=== PATIENT | female | born 1940 | race Caucasian/White ===

== ENCOUNTER 2017-02-08 16:54 | Inpatient (IN) | payer MEDICARE ==
[2017-02-08] MEDS ORDERED: IPRATROPIUM/ALBUTEROL (0.5MG/3MG) NEB INH ONE (17:12)
[2017-02-08] MEDS ORDERED: METHYLPREDNISOLONE PF 125MG/VIAL IVP SCH ×2 (17:15→18:45)
[2017-02-08] MEDS ORDERED: ACETAMINOPHEN 500 MG TABLET PO ONE (17:16)
--- NOTE | 2017-02-08 17:18 | Emergency Department Record ---
History of Present Illness - General Chief Complaint: Chest Pain Stated Complaint: CHEST PAIN, Time Seen by Provider: 02/08/17 17:10 Source: Patient, Family Mode of Arrival: Wheelchair Limitations: No limitations - History of Present Illness Initial Comments: 76 yo female presents with congestion and a cough for nearly one month. She saw Dr James her PCP at the beginning of January. He treated her with Levaquin. She initially felt better. Over the last week her cough has worsened. The cough is productive with thick green/zamora sputum. She is a smoker that quick about 3months ago. She denies knowledge of having COPD. She has had pneumonia in the past. No NVD. Over many years she has had chest pain from time to time. Currently the pain occurs with cough. MD Complaint: Chest pain, Other (Cough, fever, productive sputum, pain with cough) Onset/Timin -: Days(s) Onset: During rest Pain Location: Substernal Pain Radiation: None Quality: Heaviness Consistency: Constant Improves With: Nothing Worsens With: Nothing Anginal Symptoms: Dyspnea Treatments Prior to Arrival: Aspirin - Related Data Home Medications Medication Instructions Recorded Confirmed Last Taken Carvedilol [Carvedilol] 12.5 mg PO BID 04/26/15 02/08/17 04/26/15 Aspirin [Adult Low Dose Aspirin EC] 81 mg PO DAILY 08/03/15 02/08/17 Unknown Lorazepam [Lorazepam] 0.5 mg PO ASDIR PRN 02/08/17 02/08/17 Unknown Zolpidem Tartrate [Ambien] 10 mg PO QHS PRN 02/08/17 02/08/17 Unknown Allergies Allergy/AdvReac Type Severity Reaction Status Date / Time Penicillins Allergy HIVES Verified 04/26/15 14:42 Travel Screening - Travel/Exposure Within Last 30 Days Have you traveled within the last 30 days?: No Review of Systems Constitutional: Reports: Chills, Fever, Malaise, Weakness Eyes: Denies: Eye pain, Vision change ENT: Reports: Congestion. Denies: Ear pain Respiratory: Reports: Cough, Dyspnea, Wheezes Cardiovascular: Reports: Chest pain (with coughing), Palpitations. Denies: Syncope Endocrine: Reports: Fatigue. Denies: Polydipsia, Polyuria Gastrointestinal: Denies: Abdominal pain, Diarrhea, Nausea, Vomiting Genitourinary: Denies: Dyspareunia, Dysuria, Urgency Musculoskeletal: Denies: Arthralgia, Back pain, Myalgia, Neck pain Skin: Denies: Bruising, Change in color, Rash Neurological: Denies: Headache, Weakness Psychiatric: Denies: Anxiety Hematological/Lymphatic: Denies: Blood Clots, Easy bleeding, Easy bruising, Swollen glands Past Medical History - SOCIAL HISTORY Smoking Status: Former smoker Alcohol Use: None Drug Use: None - RESPIRATORY Hx Respiratory Disorders: No - CARDIOVASCULAR Hx Cardio Disorders: Yes Comment:: Heart murmur - NEURO Hx Neuro Disorders: No - GI Hx GI Disorders: No - Hx Genitourinary Disorders: No - ENDOCRINE Hx Endocrine Disorders: No - MUSCULOSKELETAL Hx Musculoskeletal Disorders: Yes - PSYCH Hx Psych Problems: No - HEMATOLOGY/ONCOLOGY Hx Hematology/Oncology Disorders: No Family Medical History Any Significant Family History?: Yes Hx Cancer: Father Physical Exam - General General Appearance: Alert, Oriented x3, Cooperative, No acute distress Limitations: No limitations - Head Head exam: Normal inspection - Eye Eye exam: Normal appearance, PERRL. negative: Conjunctival injection, Periorbital swelling - ENT ENT exam: Normal exam, Mucous membranes moist, Normal orophraynx Ear exam: Normal external inspection Nasal Exam: Discharge. negative: Normal inspection, Dried blood Mouth exam: Normal external inspection, Tongue normal Teeth exam: Normal inspection. negative: Dental caries Throat exam: Normal inspection. negative: Tonsillar erythema, Tonsillomegaly, Tonsillar exudate, R peritonsillar mass, L peritonsillar mass - Neck Neck exam: Normal inspection, Full ROM. negative: Lymphadenopathy, Tenderness - Respiratory Respiratory exam: Decreased breath sounds, Prolonged expiratory, Rhonchi, Wheezes. negative: Normal lung sounds bilaterally, Accessory muscle use, Rales , Respiratory distress - Cardiovascular Cardiovascular Exam: Regular rate, Normal rhythm, Normal heart sounds - GI/Abdominal GI/Abdominal exam: Soft. negative: Normal bowel sounds - Rectal Rectal exam: Deferred - exam: Deferred - Extremities Extremities exam: Normal inspection, Full ROM, Normal capillary refill. negative: Tenderness - Back Back exam: Reports: Normal inspection, Full ROM. Denies: CVA tenderness (R), CVA tenderness (L), Muscle spasm, Paraspinal tenderness, Rash noted, Tenderness , Vertebral tenderness - Neurological Neurological exam: Alert, Normal gait, Oriented X3 - Psychiatric Psychiatric exam: Normal affect, Normal mood - Skin Skin exam: Dry, Intact, Normal color, Warm Course Vital Signs 02/08/17 16:58 Temperature 100.8 F H Pulse Rate 65 Respiratory 20 Rate Blood Pressure 200/75 Pulse Ox 97 - Reevaluation(s) Reevaluation #1: The patient was seen and examined She has a 100.8 fever with thick grayish sputum No hypxia EKG 16:55 NSR, Rate is 64, intervals normal, axis normal, possiblwe LVH, no acute St changes or ischemic changes. 02/08/17 17:17 Reevaluation #2: The patient was seen after the breathing treatment She has improved air movement CXR was read and chronic interstitial changes with superimposed infiltrate in the MARK consistent with pneumonia. 02/08/17 18:04 Reevaluation #3: CBC reviewed WBC is 17 No acute changes of the CMP Troponin is negative 02/08/17 18:10 Reevaluation #4: influenza is negative 02/08/17 18:21 Reevaluation #5: The patient saturations vary form upper 80's to 90's She did improved with the Duoneb but still has some dyspnea She will be made OBS for respiratory treatment, IV steroids and antibiotics No [facility] She accepts the patient. 02/08/17 18:34 Medical Decision Making - Lab Data Result diagrams: 02/08/17 17:20 02/08/17 17:20 Disposition Disposition: Admit Clinical Impression: COPD exacerbation Pneumonia Qualifiers: Pneumonia type: due to unspecified organism Laterality: left Lung location: upper lobe of lung Qualified Code(s): J18.1 - Lobar pneumonia, unspecified organism Decision to Admit: Admit from ER Decision to Admit Date: 02/08/17 Decision to Admit Time: 18:35 Condition: (2) Stable Forms: Patient Portal Access Time of Disposition: 18:35
[2017-02-08 17:40] LABS: HEMATOCRIT 44.3 % (35.0-47.0); HEMOGLOBIN 14.6 gm/dl (11.6-16.0); MEAN CORPUSCULAR HEMOGLOBIN 29.7 pg (27-33); MEAN PLATELET VOLUME 10.4 fl (7.4-10.4); PLATELET COUNT 350 K/uL (130-400); RED BLOOD COUNT 4.92 M/uL (3.80-5.40); RED CELL DISTRIBUTION WIDTH 14.2 % (11.5-14.5); WHITE BLOOD COUNT W/O DIFF 17.4 K/uL (4.2-12.2)
[2017-02-08 17:53] LABS: ANION GAP 8.3 (7-16); BLOOD UREA NITROGEN 15 mg/dL (7-17); CARBON DIOXIDE 25.7 mmol/L (22-30); CREATININE 0.5 mg/dL (0.52-1.04); EST GLOMERULAR FILTRATION RATE > 60 ml/min; GLUCOSE,RANDOM 98 mg/dL (70-110)
[2017-02-08 18:07] LABS: TROPONIN I < 0.012 ng/mL (0.00-0.034)
[2017-02-08] MEDS ORDERED: CEFTRIAXONE SODIUM 1 GM in 0.9 % SODIUM CHLORIDE 100ML 100 ML IVPB ONE (18:10)
[2017-02-08] MEDS ORDERED: AZITHROMYCIN 500 MG TABLET PO ONE (18:10)
[2017-02-08 18:14] LABS: INFLUENZA A NEGATIVE (NEGATIVE); INFLUENZA B NEGATIVE (NEGATIVE)
[2017-02-08] MEDS ORDERED: LORAZEPAM 0.5 MG TABLET PO PRN (18:35)
[2017-02-08] MEDS ORDERED: ACETAMINOPHEN 500 MG TABLET PO PRN ×2 (18:36→20:59)
[2017-02-08] MEDS ORDERED: ALBUTEROL SULFATE (0.083%) 2.5 MG/3 ML NEB INH PRN ×2 (18:36→20:59)
[2017-02-08] MEDS ORDERED: 0.9 % SODIUM CHLORIDE 1000ML 1,000 ML IV PRN (18:36)
[2017-02-08] MEDS ORDERED: CEFTRIAXONE SODIUM 1 GM in 0.9 % SODIUM CHLORIDE 100ML 100 ML IVPB SCH ×2 (18:45→21:00)
[2017-02-08] MEDS ORDERED: METHYLPREDNISOLONE SOD 40MG/VIAL IVP ONE (20:59)
[2017-02-08] MEDS ORDERED: IPRATROPIUM/ALBUTEROL (0.5MG/3MG) NEB INH SCH (22:00)
[2017-02-08] MEDS ORDERED: CARVEDILOL 12.5 MG PO SCH (22:00)
[2017-02-08] MEDS: IPRATROPIUM/ALBUTEROL (0.5MG/3MG) NEB INH SCH (22:10)
[2017-02-08] MEDS: 0.9 % SODIUM CHLORIDE 1000ML 1,000 ML IV PRN (23:22)
[2017-02-08] MEDS: LORAZEPAM 0.5 MG TABLET PO PRN (23:23)
[2017-02-08] MEDS: ASPIRIN 81 MG TABEC PO SCH (23:36)
[2017-02-08] MEDS: CARVEDILOL 12.5 MG TABLET PO SCH (23:37)
[2017-02-09] MEDS: IPRATROPIUM/ALBUTEROL (0.5MG/3MG) NEB INH SCH ×5 (01:52→19:34)
[2017-02-09 06:24] LABS: HEMATOCRIT 43.3 % (35.0-47.0); HEMOGLOBIN 14.2 gm/dl (11.6-16.0); MEAN CELL VOLUME 90.4 fl (81-97); MEAN CORPUSCULAR HEMOGLOBIN 29.6 pg (27-33); MEAN CORPUSCULAR HGB CONC 32.8 g/dl (32-36); MEAN PLATELET VOLUME 10.2 fl (7.4-10.4); PLATELET COUNT 316 K/uL (130-400); RED BLOOD COUNT 4.79 M/uL (3.80-5.40); RED CELL DISTRIBUTION WIDTH 14.2 % (11.5-14.5); WHITE BLOOD COUNT W/O DIFF 15.5 K/uL (4.2-12.2)
[2017-02-09 06:31] LABS: ALB/GLOB RATIO 1.1 (1.1-1.8); ALBUMIN 3.9 gm/dL (3.5-5.0); ALKALINE PHOSPHATASE 104 U/L (38-126); ALT/SGPT 17 U/L (9-52); ANION GAP 9.3 (7-16); AST/SGOT 20 U/L (14-36); BILIRUBIN,TOTAL 0.67 mg/dL (0.2-1.3); BLOOD UREA NITROGEN 17 mg/dL (7-17); CARBON DIOXIDE 23.7 mmol/L (22-30); CREATININE 0.5 mg/dL (0.52-1.04); EST GLOMERULAR FILTRATION RATE > 60 ml/min; GLUCOSE,RANDOM 156 mg/dL (70-110); TOTAL PROTEIN 7.5 gm/dL (6.3-8.2)
[2017-02-09 06:36] LABS: PLATELET ESTIMATE NORMAL (NORMAL)
--- NOTE | 2017-02-09 07:51 | RADIOLOGY REPORT ---
EXAM: CHEST, TWO VIEWS HISTORY: PATIENT HAS CHEST PAIN, COUGH, WEAKNESS, FATIGUE TIMES ONE WEEK. TECHNIQUE: Two views of the chest were provided along with the comparison study dated 11/26/13. FINDINGS: The cardiomediastinal silhouette is within normal limits for size and contour. The taj appear unremarkable. Diffuse interstitial prominence is identified similar to the prior examination suggesting pulmonary fibrosis. Clinical correlation is recommended. Bilateral apical pleural thickening is again noted and unchanged with respect to the prior examination. No pneumothorax is noted. There is an area of interstitial prominence involving the left anterior lower lobe. This finding may represent superimposed pneumonia on the pulmonary fibrosis. Follow-up PA and lateral views of the chest can be obtained for further evaluation. IMPRESSION: FINDINGS SUGGESTIVE OF CHRONIC INTERSTITIAL CHANGES SIMILAR TO THE PRIOR EXAMINATION WITH SUPERIMPOSED LEFT ANTERIOR LOWER LOBE INFILTRATE SUGGESTING SUPERIMPOSED PNEUMONIA. FOLLOW-UP PA AND LATERAL VIEWS OF THE CHEST CAN BE OBTAINED UNTIL RESOLUTION OF FINDINGS. JOB NUMBER: [id number] MTDD
[2017-02-09] MEDS: CARVEDILOL 12.5 MG TABLET PO SCH ×2 (09:49→22:25)
[2017-02-09] MEDS: ASPIRIN 81 MG TABEC PO SCH (09:51)
[2017-02-09] MEDS: ENOXAPARIN 40 MG/0.4 ML SYR SQ SCH (09:51)
[2017-02-09] MEDS: CEFTRIAXONE SODIUM 1 GM in 0.9 % SODIUM CHLORIDE 100ML 100 ML IVPB SCH ×2 (09:51→22:17)
[2017-02-09] MEDS: AZITHROMYCIN 250 MG TABLET PO SCH (09:51)
[2017-02-09] MEDS ORDERED: AZITHROMYCIN 500 MG TABLET PO SCH (10:00)
[2017-02-09] MEDS ORDERED: ENOXAPARIN 40 MG/0.4 ML SYR SC SCH (10:00)
[2017-02-09] MEDS ORDERED: ASPIRIN 81 MG TABEC PO SCH (10:00)
[2017-02-09] MEDS: METHYLPREDNISOLONE PF 125MG/VIAL IVP SCH (10:37)
[2017-02-09] MEDS: HYDROCODONE/APAP 5/325MG TABLET PO PRN ×2 (11:01→16:18)
--- NOTE | 2017-02-09 11:52 | History & Physical ---
History of Present Illness - Date of Service Date of Service for History & Physical: 02/09/17 - History of Present Illness Admitting Diagnosis: Pneumonia History of Present Illness: 76 yo female admitted for MARK PNA. PMHx of smoking (quit 3 mo's ago, 1ppd x 20 + years), history of PNA, insomnia, anxiety, and low back pain. Presented to our ED after one week of worsening cough, fever and chills. Patient received PO Levaquin in early January from her PCP for lower respiratory infection. Upon presentation to our ED, temperature of 100.8, HR 65, RR 20, blood pressure 200/75, pulse ox of 97 % on RA. WBC 17.4, hgb 14.6, hct 44.3, plt 350, relatively normal BMP, CE negative x 3. negative influenza. Blood cx pending. CXR: chronic interstitial changes with superimposed infiltrate in MARK consistent w/ PNA. EKG: NSR, rate of 64, intervals/axis normal, possible LVH, no acute ST or ischemic changes. While in the ER, patient's oxygen varied between the 80-90s though patient improved following Duo neb treatment. Patient started on PO Azithromycin, 1 gm of Rocephin Q12 hours, 60 mg of IV Solumedrol and 100 mls/hr of IVF's. Patient placed on Telemetry and admitted for further medical management. 02/09/17: Patient sitting up in bed comfortably. States she feels better than yesterday though continues to feel fatigued & weak. Dyspnea improving following breathing treatments. Diaphoresis has improved. afebrile. Tolerating PO intake. normal /GI function. +chest pressure with coughing, + dizziness w/ standing. No nvd, abd pain, change in bowel habits, blood in stool or sputum, unintentional weight loss, rash, or dysuria. Denies h/o MS, DVT, or CVA. States she's been told she has a heart murmur due to h/o strep, which is why she's on Carvedilol. Has never been told she has COPD. No pulmonary or cardiac physicians. No recent travel or sick contacts. PCP: Steve Che Travel Screening - Travel/Exposure Within Last 30 Days Have you traveled within the last 30 days?: No - Travel/Exposure Within Last Year Have you traveled outside the [place] in the last year?: No - Additonal Travel Details Have you been exposed to anyone with a communicable illness?: No - Travel Symptoms Symptom Screening: None Review of Systems Constitutional: Reports: Chills, Fever, Malaise, Weakness Eyes: Denies: Eye pain, Vision change ENT: Reports: Congestion. Denies: Ear pain Respiratory: Reports: Cough, Dyspnea, Wheezes Cardiovascular: Reports: Chest pain (with coughing). Denies: Palpitations, Syncope Endocrine: Reports: Fatigue. Denies: Polydipsia, Polyuria Gastrointestinal: Denies: Abdominal pain, Diarrhea, Nausea, Vomiting Genitourinary: Denies: Dyspareunia, Dysuria, Urgency Musculoskeletal: Denies: Arthralgia, Back pain, Myalgia, Neck pain Skin: Denies: Bruising, Change in color, Rash Neurological: Denies: Confusion, Headache, Weakness Psychiatric: Denies: Anxiety Hematological/Lymphatic: Denies: Blood Clots, Easy bleeding, Easy bruising, Swollen glands Past Medical History - SOCIAL HISTORY Smoking Status: Former smoker Alcohol Use: None Drug Use: None - RESPIRATORY Hx Respiratory Disorders: No - CARDIOVASCULAR Hx Cardio Disorders: Yes Comment:: Heart murmur, BNP of 1200 per Pt. - NEURO Hx Neuro Disorders: No - GI Hx GI Disorders: No - Hx Genitourinary Disorders: No - ENDOCRINE Hx Endocrine Disorders: No - MUSCULOSKELETAL Hx Musculoskeletal Disorders: Yes - PSYCH Hx Psych Problems: No - HEMATOLOGY/ONCOLOGY Hx Hematology/Oncology Disorders: No Family Medical History Any Significant Family History?: Yes Hx Cancer: Father H&P Meds/Allergies - Allergies Allergies: Allergies Allergy/AdvReac Type Severity Reaction Status Date / Time Penicillins Allergy HIVES Verified 04/26/15 14:42 - Home Medications Home Medications Medication Instructions Recorded Confirmed Last Taken Carvedilol [Carvedilol] 12.5 mg PO BID 04/26/15 02/08/17 04/26/15 Aspirin [Adult Low Dose Aspirin EC] 81 mg PO DAILY 08/03/15 02/08/17 Unknown Lorazepam [Lorazepam] 0.5 mg PO ASDIR PRN 02/08/17 02/08/17 Unknown Zolpidem Tartrate [Ambien] 10 mg PO QHS PRN 02/08/17 02/08/17 Unknown - Active Medications Active Medications: Current Medications Acetaminophen (Tylenol 500mg Tab) 1,000 mg PO Q6H PRN PRN Reason: Pain - Mild (1-4) Hydrocodone Bitart/Acetaminophen ([place] 5mg/325mg) 1 each PO Q4H PRN PRN Reason: Pain - Moderate (5-7) Last Admin: 02/09/17 11:01 Dose: 1 each Albuterol Sulfate () 2.5 mg INH RESP.Q2H PRN PRN Reason: DIFFICULTY IN BREATHING Albuterol/Ipratropium (Duoneb) 3 ml INH RESP.Q4H.[place] [facility] Last Admin: 02/09/17 10:24 Dose: 3 ml Aspirin (Ecotrin (Ec)) 81 mg PO DAILY [facility] Last Admin: 02/09/17 09:51 Dose: 81 mg Azithromycin (Zithromax) 250 mg PO DAILY [facility] Last Admin: 02/09/17 09:51 Dose: 250 mg Carvedilol (Coreg) 12.5 mg PO BID [facility] Last Admin: 02/09/17 09:49 Dose: Not Given Enoxaparin Sodium (Lovenox) 40 mg SQ DAILY [facility] Last Admin: 02/09/17 09:51 Dose: 40 mg Sodium Chloride () 1,000 mls @ 100 mls/hr IV .Q10H PRN PRN Reason: LARGE VOLUME IV Last Admin: 02/08/17 23:22 Dose: 100 mls/hr Ceftriaxone Sodium 1 gm/ (Sodium Chloride) 100 mls @ 100 mls/hr IVPB Q12H [facility] Stop: 02/13/17 21:01 Last Admin: 02/09/17 09:51 Dose: 100 mls/hr Lorazepam (Ativan) 0.5 mg PO TID PRN PRN Reason: ANXIETY Last Admin: 02/08/17 23:23 Dose: 0.5 mg Methylprednisolone Sodium Succinate (Solu-Medrol) 60 mg IVP DAILY [facility] Last Admin: 02/09/17 10:37 Dose: 60 mg Physical Exam - General General Appearance: Alert, Oriented x3, Cooperative, No acute distress Limitations: No limitations - Head Head exam: Normal inspection - Eye Eye exam: Normal appearance, PERRL. negative: Conjunctival injection, Periorbital swelling - ENT ENT exam: Normal exam, Mucous membranes moist, Normal orophraynx Ear exam: Normal external inspection Nasal Exam: Discharge. negative: Normal inspection, Dried blood Mouth exam: Normal external inspection, Tongue normal Teeth exam: Normal inspection. negative: Dental caries Throat exam: Normal inspection. negative: Tonsillar erythema, Tonsillomegaly, Tonsillar exudate, R peritonsillar mass, L peritonsillar mass - Neck Neck exam: Normal inspection, Full ROM. negative: Lymphadenopathy, Tenderness - Respiratory Respiratory exam: Decreased breath sounds, Prolonged expiratory, Rhonchi (left side), Wheezes. negative: Normal lung sounds bilaterally, Accessory muscle use , Chest wall tenderness, Rales, Respiratory distress - Cardiovascular Cardiovascular Exam: Regular rate, Normal rhythm, Normal heart sounds - GI/Abdominal GI/Abdominal exam: Soft. negative: Normal bowel sounds - Rectal Rectal exam: Deferred - exam: Deferred - Extremities Extremities exam: Normal inspection, Full ROM, Normal capillary refill. negative: Tenderness - Back Back exam: Reports: Normal inspection, Full ROM. Denies: CVA tenderness (R), CVA tenderness (L), Muscle spasm, Paraspinal tenderness, Rash noted, Tenderness , Vertebral tenderness - Neurological Neurological exam: Alert, Normal gait, Oriented X3 - Psychiatric Psychiatric exam: Normal affect, Normal mood - Skin Skin exam: Dry, Intact, Normal color, Warm Results - Labs Result Diagrams: 02/09/17 06:10 02/09/17 06:10 VTE H&P Assessment - Risk for VTE Risk for VTE: Yes Risk Level: Moderate (age, decreased mobility) Risk Assessment Date: 02/09/17 Risk Assessment Time: 11:00 VTE Orders Placed or Will Be Placed: Yes Plan - Inpatient Certification Inpatient Certification: Admit to inpatient care: Based on my medical assessment, after consideration of patient's risk factors (age, co-morbidities and patient presenting symptoms and acuity), I expect that this patient will remain in the hospital greater than or equal to two midnights and that the services needed warrant inpatient care because: Patient Risk Factors: [pneumonia, chest discomfort, fever, decreased mobility due to weakness/fatigue, short of breath] Estimated length of stay: [2-3 nights] The patient may reasonably be expected to be discharged or transferred to a hospital within 96 hours after admission to [facility]. Services needed: [IV antibiotics, IV steroids, classroom monitor, observation by staff w/ ambulation, breathing treatments/respiratory services.] Post hospital care (if known): [home, self care] I certify that my determination is in accordance with my understanding of Medicare requirements for reasonable and necessary inpatient services. 02/09/17 12:09 - Detailed Diagnosis and Plan (1) Pneumonia Current Visit: Yes Status: Acute Qualifiers: Pneumonia type: due to unspecified organism Laterality: left Lung location: upper lobe of lung Qualified Code(s): J18.1 - Lobar pneumonia, unspecified organism Base Code: J18.9 - PNEUMONIA, UNSPECIFIED ORGANISM Comment: 76 yo f addmitted w/ MARK PNA. PMHx of smoking (quit 3 mo's ago) & h/o PNA. CXR: MARK infiltrate, interstitial changes. WBC 17.4->15.5. Afebrile now though temp of 100.8 prior to admission. Blood cx's pending. oxygen saturation 96% on RA. EKG: NSR, no acute changes. Cardiac enzymes negative x 3. - Continue PO Azithromycin, IV Rocephin 1 gm q 12 hours; Duo neb treatments Q 4 hours, albuterol Q 4-6 hours as needed, Solu medrol 60 mg daily. anti pyretics as needed for fever. - will obtain sputum culture. - VS's Q8 hours. classroom monitor. (2) DVT prophylaxis Current Visit: Yes Status: Acute Base Code: [id number] - Comment: 02/09/17: moderate risk noting decreased mobility and age. encouraged ambulation. lovenox 40 mg sq qd. (3) Full code status Current Visit: Yes Status: Acute Base Code: Z78.9 - OTHER SPECIFIED HEALTH STATUS Comment: 02/09/17: patient is full code
[2017-02-09] MEDS: LORAZEPAM 0.5 MG TABLET PO PRN (22:36)
[2017-02-10] MEDS: 0.9 % SODIUM CHLORIDE 1000ML 1,000 ML IV PRN (01:27)
[2017-02-10] MEDS: IPRATROPIUM/ALBUTEROL (0.5MG/3MG) NEB INH SCH ×2 (06:00→18:15)
[2017-02-10 06:32] LABS: HEMATOCRIT 38.1 % (35.0-47.0); HEMOGLOBIN 12.2 gm/dl (11.6-16.0); MEAN CELL VOLUME 91.6 fl (81-97); MEAN CORPUSCULAR HEMOGLOBIN 29.3 pg (27-33); MEAN PLATELET VOLUME 10.6 fl (7.4-10.4); PLATELET COUNT 291 K/uL (130-400); RED BLOOD COUNT 4.16 M/uL (3.80-5.40); RED CELL DISTRIBUTION WIDTH 14.5 % (11.5-14.5); WHITE BLOOD COUNT W/O DIFF 18.6 K/uL (4.2-12.2)
[2017-02-10 06:50] LABS: ANION GAP 6.7 (7-16); BLOOD UREA NITROGEN 18 mg/dL (7-17); CARBON DIOXIDE 24.3 mmol/L (22-30); CREATININE 0.5 mg/dL (0.52-1.04); EST GLOMERULAR FILTRATION RATE > 60 ml/min; GLUCOSE,RANDOM 81 mg/dL (70-110)
[2017-02-10] MEDS: CARVEDILOL 12.5 MG TABLET PO SCH ×2 (09:37→22:22)
[2017-02-10] MEDS: ASPIRIN 81 MG TABEC PO SCH (09:38)
[2017-02-10] MEDS: METHYLPREDNISOLONE PF 125MG/VIAL IVP SCH (09:38)
[2017-02-10] MEDS: ENOXAPARIN 40 MG/0.4 ML SYR SQ SCH (09:38)
[2017-02-10] MEDS: CEFTRIAXONE SODIUM 1 GM in 0.9 % SODIUM CHLORIDE 100ML 100 ML IVPB SCH ×2 (09:38→22:21)
[2017-02-10] MEDS: AZITHROMYCIN 250 MG TABLET PO SCH (09:39)
--- NOTE | 2017-02-10 09:45 | RADIOLOGY REPORT ---
EXAM: CHEST, TWO VIEWS HISTORY: FOLLOW-UP PNEUMONIA. TECHNIQUE: Two views of the chest were obtained. Comparison: Chest x-ray 02/08/17. Chest x-ray 11/26/13. FINDINGS: Biapical pleural thickening right greater than left consistent with fibrosis. Coarse reticular opacity throughout the lungs consistent with fibrosis. Air space disease overlying the anterior heart border on the lateral view has resolved. The cardiac silhouette is top normal in size. The diaphragm is flattened. Osteopenia. IMPRESSION: PULMONARY FIBROSIS. INTERVAL RESOLUTION OF THE ANTERIOR LUNG INFILTRATE ON THE LATERAL VIEW. NO DEFINITE ACUTE PROCESS. JOB NUMBER: [id number] MTDD
[2017-02-10] MEDS ORDERED: CEFTRIAXONE SODIUM 1 GM in 0.9 % SODIUM CHLORIDE 100ML 100 ML IVPB ONE (10:45)
--- NOTE | 2017-02-10 21:58 | Physician Progress Note ---
Subjective - Date Date of Physician Progress Note: 02/10/17 - Subjective Subjective Comment: Reports increase in fatigue and sluggishness over the last 24 hours with increased productive cough. Has had fatigue for the past several weeks prior to admission. Denies chest pain or palpitations. Denies GI/ dysfunction. Appetite poor but is forcing herself to eat. Objective - Vital Signs Vital Signs: Vital Signs - Last 24 Hrs Temp Pulse Pulse Resp BP Pulse Ox 02/10/17 19:45 97.6 F 50 L 22 132/68 97 02/10/17 18:18 65 20 96 02/10/17 18:00 97.6 F 60 20 139/74 96 02/10/17 09:30 98.1 F 48 L 18 154/64 98 02/10/17 08:42 54 L 18 02/10/17 05:30 97.7 F 54 L 18 147/73 97 - General General Appearance: Alert, Oriented x3, Cooperative, No acute distress Limitations: No limitations - Head Head exam: Normal inspection - Eye Eye exam: Normal appearance, PERRL. negative: Conjunctival injection, Periorbital swelling - ENT ENT exam: Normal exam, Mucous membranes moist, Normal orophraynx Ear exam: Normal external inspection Nasal Exam: Discharge. negative: Normal inspection, Dried blood Mouth exam: Normal external inspection, Tongue normal Teeth exam: Normal inspection. negative: Dental caries Throat exam: Normal inspection. negative: Tonsillar erythema, Tonsillomegaly, Tonsillar exudate, R peritonsillar mass, L peritonsillar mass - Neck Neck exam: Normal inspection, Full ROM. negative: Lymphadenopathy, Tenderness - Respiratory Respiratory exam: Decreased breath sounds, Prolonged expiratory, Rhonchi (left side), Wheezes. negative: Normal lung sounds bilaterally, Accessory muscle use , Chest wall tenderness, Rales, Respiratory distress - Cardiovascular Cardiovascular Exam: Regular rate (apical rate 56), Normal rhythm, Normal heart sounds - GI/Abdominal GI/Abdominal exam: Soft. negative: Normal bowel sounds - Rectal Rectal exam: Deferred - exam: Deferred - Extremities Extremities exam: Normal inspection, Full ROM, Normal capillary refill. negative: Tenderness - Back Back exam: Reports: Normal inspection, Full ROM. Denies: CVA tenderness (R), CVA tenderness (L), Muscle spasm, Paraspinal tenderness, Rash noted, Tenderness , Vertebral tenderness - Neurological Neurological exam: Alert, Normal gait, Oriented X3 - Psychiatric Psychiatric exam: Normal affect, Normal mood - Skin Skin exam: Dry, Intact, Normal color, Warm Assessment and Plan - Assessment and Plan (1) Pneumonia Current Visit: Yes Status: Acute Qualifiers: Pneumonia type: due to unspecified organism Laterality: left Lung location: upper lobe of lung Qualified Code(s): J18.1 - Lobar pneumonia, unspecified organism Base Code: J18.9 - PNEUMONIA, UNSPECIFIED ORGANISM Comment: 02/10/17- 76 yo f admitted w/ MARK PNA. PMHx of smoking (quit 3 mo's ago ) & h/o PNA. CXR: MARK infiltrate, interstitial changes. WBC 17.4->15.5->18.6 likely steroid induced elevation. Afebrile now though temp of 100.8 prior to admission. Blood cx's pending. oxygen saturation 96% on RA. EKG: NSR, no acute changes. Cardiac enzymes negative x 3. - Continue PO Azithromycin, IV Rocephin 1 gm q 12 hours; Duo neb treatments Q 4 hours, albuterol Q 4-6 hours as needed, Solu medrol 60 mg daily. anti pyretics as needed for fever. 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 (2) Bradycardia Current Visit: Yes Status: Acute Base Code: R00.1 - BRADYCARDIA, UNSPECIFIED Comment: 02/10/17- History of HTN with beta blockade. 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 Pulse 48 this am, patient feeling increasingly weak, sluggish. Coreg held this am - consult cardiology for bradycardia with need for hypertensive agent - initiate ACS rule out - VS q 4 hrs - EKG - troponin q 6hrs x 3 (3) HTN (hypertension) Current Visit: Yes Status: Acute Base Code: I10 - ESSENTIAL (PRIMARY) HYPERTENSION Comment: 02/10/17- history of HTN managed by PCP. New onset bradycardia with with need for hypertensive agent. ACS rule out in process. Cardiology consult ordered and pending (4) DVT prophylaxis Current Visit: Yes Status: Acute Base Code: [id number] - Comment: 02/10/17: moderate risk noting decreased mobility and age. encouraged ambulation. lovenox 40 mg sq qd. (5) Full code status Current Visit: Yes Status: Acute Base Code: Z78.9 - OTHER SPECIFIED HEALTH STATUS Comment: 02/10/17: patient is full code Results - Labs Result Diagrams: 02/10/17 06:10 02/10/17 06:10 Labs Last 24 Hours: Laboratory Results - last 24 hr 02/10/17 02/10/17 02/10/17 06:10 06:10 18:27 WBC 18.6 H RBC 4.16 Hgb 12.2 Hct 38.1 MCV 91.6 MCH 29.3 MCHC 32.0 RDW 14.5 Plt Count 291 MPV 10.6 H Neutrophils % 76.0 Band Neutrophils % 0.0 Lymphocytes % 18.0 Monocytes % 6.0 Eosinophils % 0.0 Basophils % Not Reportable Sodium 144 Potassium 3.4 L Chloride 113 H Carbon Dioxide 24.3 Anion Gap 6.7 L BUN 18 H Creatinine 0.5 L Estimated GFR > 60 Random Glucose 81 Calcium 8.5 Troponin I < 0.012 DVT/PE Assessment - Risk for VTE Risk for VTE: No Risk Level: Moderate (age, decreased mobility) Risk Assessment Date: 02/09/17 Risk Assessment Time: 11:00 VTE Orders Placed or Will Be Placed: Yes - Active Medicaitons Current Medications: Current Medications Acetaminophen (Tylenol 500mg Tab) 1,000 mg PO Q6H PRN PRN Reason: Pain - Mild (1-4) Hydrocodone Bitart/Acetaminophen ([place] 5mg/325mg) 1 each PO Q4H PRN PRN Reason: Pain - Moderate (5-7) Last Admin: 02/09/17 16:18 Dose: 1 each Albuterol Sulfate () 2.5 mg INH RESP.Q2H PRN PRN Reason: DIFFICULTY IN BREATHING Albuterol/Ipratropium (Duoneb) 3 ml INH RESP.Q12H [facility] Last Admin: 02/10/17 18:15 Dose: 3 ml Aspirin (Ecotrin (Ec)) 81 mg PO DAILY [facility] Last Admin: 02/10/17 09:38 Dose: 81 mg Azithromycin (Zithromax) 250 mg PO DAILY [facility] Last Admin: 02/10/17 09:39 Dose: 250 mg Carvedilol (Coreg) 12.5 mg PO BID [facility] Last Admin: 02/10/17 09:37 Dose: Not Given Enoxaparin Sodium (Lovenox) 40 mg SQ DAILY [facility] Last Admin: 02/10/17 09:38 Dose: 40 mg Sodium Chloride () 1,000 mls @ 100 mls/hr IV .Q10H PRN PRN Reason: LARGE VOLUME IV Last Admin: 02/10/17 01:27 Dose: 100 mls/hr Ceftriaxone Sodium 1 gm/ (Sodium Chloride) 100 mls @ 100 mls/hr IVPB Q12H [facility] Stop: 02/13/17 21:01 Last Admin: 02/10/17 09:38 Dose: 100 mls/hr Lorazepam (Ativan) 0.5 mg PO TID PRN PRN Reason: ANXIETY Last Admin: 02/09/17 22:36 Dose: 0.5 mg Methylprednisolone Sodium Succinate (Solu-Medrol) 60 mg IVP DAILY [facility] Last Admin: 02/10/17 09:38 Dose: 60 mg AMI Plan - Labs Result Diagrams: 02/10/17 06:10 02/10/17 06:10
[2017-02-10] MEDS: LORAZEPAM 0.5 MG TABLET PO PRN (22:20)
[2017-02-11] MEDS: 0.9 % SODIUM CHLORIDE 1000ML 1,000 ML IV PRN ×2 (03:47→21:14)
[2017-02-11] MEDS: IPRATROPIUM/ALBUTEROL (0.5MG/3MG) NEB INH SCH ×2 (07:34→19:45)
[2017-02-11] MEDS: CEFTRIAXONE SODIUM 1 GM in 0.9 % SODIUM CHLORIDE 100ML 100 ML IVPB SCH ×2 (09:26→21:10)
[2017-02-11] MEDS: ENOXAPARIN 40 MG/0.4 ML SYR SQ SCH (09:29)
[2017-02-11] MEDS: ASPIRIN 81 MG TABEC PO SCH (09:30)
[2017-02-11] MEDS: AZITHROMYCIN 250 MG TABLET PO SCH (09:30)
[2017-02-11] MEDS: METHYLPREDNISOLONE PF 125MG/VIAL IVP SCH (09:30)
[2017-02-11] MEDS: HYDROCODONE/APAP 5/325MG TABLET PO PRN (10:02)
--- NOTE | 2017-02-11 13:58 | Physician Progress Note ---
Subjective - Date Date of Physician Progress Note: 02/11/17 - Subjective Subjective Comment: Reports is feeling much better today, feeling less tired and weak. Denies chest pain, palpitations, syncope. Cough and appetite improved. Denies GI/ dysfunction Objective - Vital Signs Vital Signs: Vital Signs - Last 24 Hrs Temp Pulse Pulse Pulse Resp BP Pulse Ox 02/11/17 10:00 98.3 F 51 L 12 130/66 98 02/11/17 07:25 60 14 02/11/17 04:32 97.7 F 50 L 18 152/88 97 02/11/17 02:00 98.1 F 53 L 18 137/75 97 02/10/17 19:45 97.6 F 50 L 22 132/68 97 02/10/17 18:18 65 20 96 02/10/17 18:00 97.6 F 60 20 139/74 96 - General General Appearance: Alert, Oriented x3, Cooperative, No acute distress Limitations: No limitations - Head Head exam: Normal inspection - Eye Eye exam: Normal appearance, PERRL. negative: Conjunctival injection, Periorbital swelling - ENT ENT exam: Normal exam, Mucous membranes moist, Normal orophraynx Ear exam: Normal external inspection Nasal Exam: Discharge. negative: Normal inspection, Dried blood Mouth exam: Normal external inspection, Tongue normal Teeth exam: Normal inspection. negative: Dental caries Throat exam: Normal inspection. negative: Tonsillar erythema, Tonsillomegaly, Tonsillar exudate, R peritonsillar mass, L peritonsillar mass - Neck Neck exam: Normal inspection, Full ROM. negative: Lymphadenopathy, Tenderness - Respiratory Respiratory exam: Decreased breath sounds, Prolonged expiratory, Rhonchi (left side), Wheezes. negative: Normal lung sounds bilaterally, Accessory muscle use , Chest wall tenderness, Rales, Respiratory distress - Cardiovascular Cardiovascular Exam: Regular rate (apical rate 56), Normal rhythm, Normal heart sounds - GI/Abdominal GI/Abdominal exam: Soft. negative: Normal bowel sounds - Rectal Rectal exam: Deferred - exam: Deferred - Extremities Extremities exam: Normal inspection, Full ROM, Normal capillary refill. negative: Tenderness - Back Back exam: Reports: Normal inspection, Full ROM. Denies: CVA tenderness (R), CVA tenderness (L), Muscle spasm, Paraspinal tenderness, Rash noted, Tenderness , Vertebral tenderness - Neurological Neurological exam: Alert, Normal gait, Oriented X3 - Psychiatric Psychiatric exam: Normal affect, Normal mood - Skin Skin exam: Dry, Intact, Normal color, Warm Assessment and Plan - Assessment and Plan (1) Pneumonia Current Visit: Yes Status: Acute Qualifiers: Pneumonia type: due to unspecified organism Laterality: left Lung location: upper lobe of lung Qualified Code(s): J18.1 - Lobar pneumonia, unspecified organism Base Code: J18.9 - PNEUMONIA, UNSPECIFIED ORGANISM Comment: 02/11/17- 76 yo f admitted w/ MARK PNA. PMHx of smoking (quit 3 mo's ago ) & h/o PNA. CXR: MARK infiltrate, interstitial changes. WBC 17.4->15.5->18.6 likely steroid induced elevation. Afebrile now though temp of 100.8 prior to admission. Blood cx's pending with preliminary report of no growth to date. oxygen saturation 96% on RA. EKG: NSR, no acute changes. Cardiac enzymes negative x 3. Clinical symptom improvement today. - Continue PO Azithromycin, IV Rocephin 1 gm q 12 hours; Duo neb treatments Q 4 hours, albuterol Q 4-6 hours as needed, Solu medrol 60 mg daily. anti pyretics as needed for fever. - sputum culture pending - legionaire culture pending - VS's Q8 hours. - Clinical improvement today, will plan discharge home in am if Cardiology Ok echo to be done as outpatient - follow up PCP in 2 weeks (2) Bradycardia Current Visit: Yes Status: Acute Base Code: R00.1 - BRADYCARDIA, UNSPECIFIED Comment: 02/11/17- History of HTN with beta blockade. 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 Pulse 48 . patient had been feeling increasingly weak, sluggish with some improvement of symptoms today. Coreg on hold, pulse <60. No significant acute findings for ACS. - Cardiology consult today- new order for echo (will consult Dr Payne to see if this can be done as outpatient) - ACS work up- troponin X3 negative, 2 previous EKG- SR, left atrial enlargement , non-specific T wave abnormalities. (3) HTN (hypertension) Current Visit: Yes Status: Acute Base Code: I10 - ESSENTIAL (PRIMARY) HYPERTENSION Comment: 02/11/17- history of HTN managed by PCP. New onset bradycardia with with need for hypertensive agent. ACS rule out complete, /troponin x 3 negative. Cardiology consult complete with new order for echo. BP today 152/88 (4) DVT prophylaxis Current Visit: Yes Status: Acute Base Code: [id number] - Comment: 02/11/17: moderate risk noting decreased mobility and age. encouraged ambulation. lovenox 40 mg sq qd. (5) Full code status Current Visit: Yes Status: Acute Base Code: Z78.9 - OTHER SPECIFIED HEALTH STATUS Comment: 02/11/17: patient is full code Results - Labs Result Diagrams: 02/10/17 06:10 02/10/17 06:10 Labs Last 24 Hours: Laboratory Results - last 24 hr 02/10/17 02/10/17 02/11/17 13:35 18:27 00:15 Troponin I < 0.012 < 0.012 Influenza Virus (PCR) Not detected Specimen Comment Nasopharyngeal 02/11/17 08:20 Troponin I < 0.012 Influenza Virus (PCR) Specimen Comment DVT/PE Assessment - Risk for VTE Risk for VTE: No Risk Level: Moderate (age, decreased mobility) Risk Assessment Date: 02/09/17 Risk Assessment Time: 11:00 VTE Orders Placed or Will Be Placed: Yes - Active Medicaitons Current Medications: Current Medications Acetaminophen (Tylenol 500mg Tab) 1,000 mg PO Q6H PRN PRN Reason: Pain - Mild (1-4) Hydrocodone Bitart/Acetaminophen ([place] 5mg/325mg) 1 each PO Q4H PRN PRN Reason: Pain - Moderate (5-7) Last Admin: 02/11/17 10:02 Dose: 1 each Albuterol Sulfate () 2.5 mg INH RESP.Q2H PRN PRN Reason: DIFFICULTY IN BREATHING Albuterol/Ipratropium (Duoneb) 3 ml INH RESP.Q12H [facility] Last Admin: 02/11/17 07:34 Dose: 3 ml Aspirin (Ecotrin (Ec)) 81 mg PO DAILY [facility] Last Admin: 02/11/17 09:30 Dose: 81 mg Azithromycin (Zithromax) 250 mg PO DAILY [facility] Last Admin: 02/11/17 09:30 Dose: 250 mg Carvedilol (Coreg) 12.5 mg PO BID [facility] Last Admin: 02/10/17 22:22 Dose: Not Given Enoxaparin Sodium (Lovenox) 40 mg SQ DAILY [facility] Last Admin: 02/11/17 09:29 Dose: 40 mg Sodium Chloride () 1,000 mls @ 100 mls/hr IV .Q10H PRN PRN Reason: LARGE VOLUME IV Last Admin: 02/11/17 03:47 Dose: 100 mls/hr Ceftriaxone Sodium 1 gm/ (Sodium Chloride) 100 mls @ 100 mls/hr IVPB Q12H [facility] Stop: 02/13/17 21:01 Last Admin: 02/11/17 09:26 Dose: 100 mls/hr Lorazepam (Ativan) 0.5 mg PO TID PRN PRN Reason: ANXIETY Last Admin: 02/10/17 22:20 Dose: 0.5 mg Methylprednisolone Sodium Succinate (Solu-Medrol) 60 mg IVP DAILY [facility] Last Admin: 02/11/17 09:30 Dose: 60 mg AMI Plan - Labs Result Diagrams: 02/10/17 06:10 02/10/17 06:10
[2017-02-11] MEDS: CARVEDILOL 12.5 MG TABLET PO SCH ×2 (15:31→22:37)
[2017-02-11] MEDS: LORAZEPAM 0.5 MG TABLET PO PRN (21:10)
[2017-02-12] MEDS: IPRATROPIUM/ALBUTEROL (0.5MG/3MG) NEB INH SCH ×2 (06:17→17:06)
[2017-02-12] MEDS: AZITHROMYCIN 250 MG TABLET PO SCH (09:52)
[2017-02-12] MEDS: METHYLPREDNISOLONE PF 125MG/VIAL IVP SCH (09:52)
[2017-02-12] MEDS: CARVEDILOL 12.5 MG TABLET PO SCH ×2 (09:53→22:39)
[2017-02-12] MEDS: ENOXAPARIN 40 MG/0.4 ML SYR SQ SCH (09:53)
[2017-02-12] MEDS: CEFTRIAXONE SODIUM 1 GM in 0.9 % SODIUM CHLORIDE 100ML 100 ML IVPB SCH (09:54)
[2017-02-12] MEDS: ASPIRIN 81 MG TABEC PO SCH (09:54)
[2017-02-12] MEDS ORDERED: HYDROCHLOROTHIAZIDE 25 MG TABLET PO ONE (10:01)
--- NOTE | 2017-02-12 14:28 | Physician Progress Note ---
Subjective - Date Date of Physician Progress Note: 02/12/17 - Subjective Subjective Comment: Patient doing well today. Feels her strength has improved, has been ambulating in room and eng to prevent deconditioning and tolerating well. Denies CP, palpitations, ringing in ears, syncope. Denies GI/ dysfunction. Nursing reports continuing to hold Coreg for pulse<60. Awaiting echo as ordered by Dr Payne for persistent bradycardia with HTN. Objective - Vital Signs Vital Signs: Vital Signs - Last 24 Hrs Temp Pulse Resp BP Pulse Ox 02/12/17 08:34 98.1 F 51 L 23 174/74 95 02/11/17 22:04 98.6 F 97 H 18 151/75 97 02/11/17 18:00 98.5 F 53 L 12 134/58 97 - General General Appearance: Alert, Oriented x3, Cooperative, No acute distress Limitations: No limitations - Head Head exam: Normal inspection - Eye Eye exam: Normal appearance, PERRL. negative: Conjunctival injection, Periorbital swelling - ENT ENT exam: Normal exam, Mucous membranes moist, Normal orophraynx Ear exam: Normal external inspection Nasal Exam: Normal inspection. negative: Dried blood Mouth exam: Normal external inspection, Tongue normal Teeth exam: Normal inspection. negative: Dental caries Throat exam: Normal inspection. negative: Tonsillar erythema, Tonsillomegaly, Tonsillar exudate, R peritonsillar mass, L peritonsillar mass - Neck Neck exam: Normal inspection, Full ROM. negative: Lymphadenopathy, Tenderness - Respiratory Respiratory exam: Rhonchi (MARK, improved from yesterday). negative: Normal lung sounds bilaterally, Accessory muscle use, Chest wall tenderness, Decreased breath sounds, Prolonged expiratory, Rales, Respiratory distress, Wheezes - Cardiovascular Cardiovascular Exam: Regular rate (apical rate 56), Normal rhythm, Normal heart sounds - GI/Abdominal GI/Abdominal exam: Soft. negative: Normal bowel sounds - Rectal Rectal exam: Deferred - exam: Deferred - Extremities Extremities exam: Normal inspection, Full ROM, Normal capillary refill. negative: Tenderness - Back Back exam: Reports: Normal inspection, Full ROM. Denies: CVA tenderness (R), CVA tenderness (L), Muscle spasm, Paraspinal tenderness, Rash noted, Tenderness , Vertebral tenderness - Neurological Neurological exam: Alert, Normal gait, Oriented X3 - Psychiatric Psychiatric exam: Normal affect, Normal mood - Skin Skin exam: Dry, Intact, Normal color, Warm Assessment and Plan - Assessment and Plan (1) Pneumonia Current Visit: Yes Status: Acute Qualifiers: Pneumonia type: due to unspecified organism Laterality: left Lung location: upper lobe of lung Qualified Code(s): J18.1 - Lobar pneumonia, unspecified organism Base Code: J18.9 - PNEUMONIA, UNSPECIFIED ORGANISM Comment: 02/12/17- 76 yo f admitted w/ MARK PNA. PMHx of smoking (quit 3 mo's ago ) & h/o PNA. CXR: MARK infiltrate, interstitial changes. WBC 17.4->15.5->18.6 likely steroid induced elevation. Afebrile now though temp of 100.8 prior to admission. Blood cx's pending with preliminary report of no growth to date. oxygen saturation 96% on RA. EKG: NSR, HR 50-60, no acute changes. Cardiac enzymes negative x 3. Clinical symptom improvement today. - Continue PO Azithromycin for total 5 days - DC Rocephin after today's dose as afebrile, + clinical improvement - Continue Duo neb treatments Q 12 hours, albuterol Q 2 hours as needed, Solu medrol 60 mg daily. anti pyretics as needed for fever. - sputum culture pending - legionaire culture pending - VS's Q8 hours. - Clinical improvement, will plan discharge home Thursday after echocardiogram complete and no further cardiac concerns - follow up PCP in 2 weeks (2) Bradycardia Current Visit: Yes Status: Acute Base Code: R00.1 - BRADYCARDIA, UNSPECIFIED Comment: 02/12/17- History of HTN with beta blockade. 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 Pulse 48 . patient had been feeling increasingly weak, sluggish with some improvement of symptoms today. Coreg on hold, pulse <60. - ACS work up 02/10- troponin X3 negative, 2 previous EKG- SR, left atrial enlargement, non-specific T wave abnormalities. Cardiology consult 02/11- new order for echo, Dr Payne prefers patient remain inpatient for monitoring of persistent bradycardia until echo is completed 02/13. (3) HTN (hypertension) Current Visit: Yes Status: Acute Base Code: I10 - ESSENTIAL (PRIMARY) HYPERTENSION Comment: 02/12/17- history of HTN managed by PCP. New onset bradycardia with with need for hypertensive agent. ACS rule out complete, /troponin x 3 negative. Cardiology consult complete with new order for echo. BP today 175/84 - DC IVF today - Initiate hydrochlorothiazine 25mg PO QD (4) DVT prophylaxis Current Visit: Yes Status: Acute Base Code: [id number] - Comment: 02/12/17: moderate risk noting decreased mobility and age. encouraged ambulation. lovenox 40 mg sq qd during this hospitalization (5) Full code status Current Visit: Yes Status: Acute Base Code: Z78.9 - OTHER SPECIFIED HEALTH STATUS Comment: 02/12/17: patient is full code during this hospitalization Results - Labs Result Diagrams: 02/10/17 06:10 02/10/17 06:10 DVT/PE Assessment - Risk for VTE Risk for VTE: No Risk Level: Moderate (age, decreased mobility) Risk Assessment Date: 02/09/17 Risk Assessment Time: 11:00 VTE Orders Placed or Will Be Placed: Yes - Active Medicaitons Current Medications: Current Medications Acetaminophen (Tylenol 500mg Tab) 1,000 mg PO Q6H PRN PRN Reason: Pain - Mild (1-4) Hydrocodone Bitart/Acetaminophen ([place] 5mg/325mg) 1 each PO Q4H PRN PRN Reason: Pain - Moderate (5-7) Last Admin: 02/11/17 10:02 Dose: 1 each Albuterol Sulfate () 2.5 mg INH RESP.Q2H PRN PRN Reason: DIFFICULTY IN BREATHING Albuterol/Ipratropium (Duoneb) 3 ml INH RESP.Q12H [facility] Last Admin: 02/12/17 06:17 Dose: 3 ml Aspirin (Ecotrin (Ec)) 81 mg PO DAILY [facility] Last Admin: 02/12/17 09:54 Dose: 81 mg Azithromycin (Zithromax) 250 mg PO DAILY [facility] Last Admin: 02/12/17 09:52 Dose: 250 mg Carvedilol (Coreg) 12.5 mg PO BID [facility] Last Admin: 02/12/17 09:53 Dose: Not Given Enoxaparin Sodium (Lovenox) 40 mg SQ DAILY [facility] Last Admin: 02/12/17 09:53 Dose: 40 mg Hydrochlorothiazide (Hctz 25mg) 25 mg PO DAILY [facility] Ceftriaxone Sodium 1 gm/ (Sodium Chloride) 100 mls @ 100 mls/hr IVPB Q12H [facility] Stop: 02/13/17 21:01 Last Admin: 02/12/17 09:54 Dose: 100 mls/hr Lorazepam (Ativan) 0.5 mg PO TID PRN PRN Reason: ANXIETY Last Admin: 02/11/17 21:10 Dose: 0.5 mg Methylprednisolone Sodium Succinate (Solu-Medrol) 60 mg IVP DAILY [facility] Last Admin: 02/12/17 09:52 Dose: 60 mg AMI Plan - Labs Result Diagrams: 02/10/17 06:10 02/10/17 06:10
--- NOTE | 2017-02-12 15:31 | Medical Records Consult ---
DATE OF DICTATION: 02/11/17 DATE OF CONSULTATION: 02/11/17 INDICATION: BRADYCARDIA. HYPERTENSION. HISTORY: 76-year-old female presents to the E.D. complaining of congestion and cough for one month. Dr. Aldrich, her primary care physician, treated her with Levaquin, felt better for a little bit, and then over the last week her cough had worsened. The cough is productive, thick, zamora sputum. She has fevers occasionally. She quit smoking three months ago. Denies being told she ever had COPD. Apparently in the E.D. or on the Floor, her heart rates have been in the low 40s on occasion. From telemetry strips, it looks like it is mid to high 40s at the lowest. Some short bursts of SVT. She also complains of fatigue since being placed on Carvedilol for her blood pressure about two years ago. About a year ago, the dose was reduced. She felt a little better but still complains of fatigue. She is fairly sure the Carvedilol was started due to blood pressure but again she denies having any prolonged history of blood pressure issues. PAST MEDICAL HISTORY: Hypertension. Anxiety. Tobacco history. Intermittent chest pain on and off for years. ALLERGIES: PENICILLIN; HIVES. CURRENT MEDICATIONS: Carvedilol 12.5 mg p.o. b.i.d. Aspirin 81 mg daily Lorazepam 0.5 mg as directed Ambien 10 mg as directed FAMILY HISTORY: Noncontributory. SOCIAL HISTORY: Former tobacco user. No alcohol. No illicit. REVIEW OF SYSTEMS: GENERAL: Positive for fevers, chills since having upper respiratory tract infection. HEENT: No acute hearing or vision changes. CARDIOVASCULAR: Fatigue. No chest pain recently. Positive for productive cough. Shortness of breath since having her upper respiratory tract infection. PULMONARY: Positive for productive cough. GI: No nausea or vomiting. No tarry or bloody stools. : No dysuria or hematuria. ENDOCRINE: Denies diabetes history. HEME: No unexplained bruising or bleeding. NEUROMUSCULAR: Denies any stroke or seizure history. LABORATORIES: White blood cells 15.5, hemoglobin 14.2, hematocrit 43.3, platelets 316, glucose 156, BUN 17, creatinine 0.5, sodium 142, potassium 3.7, troponins within normal limits. RADIOLOGY: Chest x-ray shows chronic interstitial changes similar to prior exam. Left anterior lobe infiltrate suggesting superimposed pneumonia. EKG: Shows sinus rhythm. Questionable LVH. PHYSICAL EXAM: GENERAL: Alert and in no apparent distress. HEENT: Normocephalic/atraumatic. NECK: Supple. No JVD. No carotid bruits. CARDIOVASCULAR: Regular rhythm. Diminished heart sounds. PULMONARY: Coarse breath sounds upper lung madrigal. Decreased breath sounds left lower posterior lung madrigal. No accessory muscle use. ABDOMEN: Soft. Positive bowel sounds. EXTREMITIES: No edema. Radial and pedal pulses are grossly intact. NEUROMUSCULAR: Speech is clear. ASSESSMENT/PLAN: BRADYCARDIA: Most likely secondary to beta-blockade. She has been on this for a couple of years. About a year ago, the dose was reduced due to fatigue. If the beta-alexei has been used for blood pressure only, beta- blockers are really not the best initial blood pressure management regimen. She denies ever having an CA, which would be an indication for beta-alexei use so I feel her beta-alexei could be weaned off. I would eventually take her down to a half dose for a week and then go down to 3.25 mg b.i.d. twice a day and then discontinue. Her only allergies listed is Penicillin. An JEEVAN inhibitor and ARB would be a good choice to try for other blood pressure management as it will not effect her heart rate. We just might recommend the usual renal monitoring if an JEEVAN or an ARB is used. Would recommend she stay inpatient, increase her activity, continue to monitor on telemetry. Unfortunately, echocardiography is not out until Thursday so I would recommend she stay for her inpatient echocardiogram to make sure that her EF is normal. If her echo is unremarkable and there is significant bradycardia episodes or other arrhythmias , she could follow-up in our office in the outpatient clinic. If there are still no arrhythmias identified by the time she is discharged, I would recommend , before she goes home, to set her up with a 30-day event recorder so we can continue to monitor her for any significant arrhythmias as an outpatient. Antwon Payne D.O. Date & Time JOB NUMBER: [id number] [facility]
[2017-02-12] MEDS ORDERED: DILTIAZEM 25MG/5ML VIAL IV ONE (18:40)
[2017-02-12] MEDS ORDERED: DILTIAZEM HCL 125 MG in 0.9 % SODIUM CHLORIDE 100ML 100 ML IV SCH (18:45)
[2017-02-12] MEDS ORDERED: HEPARIN SODIUM 1000 UNIT/1 ML 10ML VIAL IVP ONE (19:15)
[2017-02-12] MEDS ORDERED: HEPARIN SODIUM/D5W 25,000 UNITS in DEXTROSE 5 % IN WATER 1 BAG IV SCH ×2 (19:19)
[2017-02-12 20:07] LABS: INR 0.96; PROTHROMBIN TIME (PATIENT) 10.9 SECONDS (9.5-12.1)
[2017-02-12] MEDS: LORAZEPAM 0.5 MG TABLET PO PRN (22:41)
[2017-02-13] MEDS ORDERED: ALPRAZOLAM 0.25 MG TABLET PO PRN (00:09)
[2017-02-13] MEDS ORDERED: HEPARIN SODIUM 1000 UNIT/1 ML 10ML VIAL IVP ONE ×2 (02:50→08:57)
[2017-02-13] MEDS: IPRATROPIUM/ALBUTEROL (0.5MG/3MG) NEB INH SCH (06:25)
[2017-02-13] MEDS: LORAZEPAM 0.5 MG TABLET PO PRN (06:25)
[2017-02-13 07:50] LABS: HEMATOCRIT 43.4 % (35.0-47.0); HEMOGLOBIN 14.2 gm/dl (11.6-16.0); MEAN CELL VOLUME 90.6 fl (81-97); MEAN CORPUSCULAR HEMOGLOBIN 29.6 pg (27-33); MEAN CORPUSCULAR HGB CONC 32.7 g/dl (32-36); MEAN PLATELET VOLUME 10.5 fl (7.4-10.4); PLATELET COUNT 334 K/uL (130-400); RED BLOOD COUNT 4.79 M/uL (3.80-5.40); RED CELL DISTRIBUTION WIDTH 14.3 % (11.5-14.5); WHITE BLOOD COUNT W/O DIFF 16.6 K/uL (4.2-12.2)
[2017-02-13 08:00] LABS: ALBUMIN 3.4 gm/dL (3.5-5.0); ALKALINE PHOSPHATASE 95 U/L (38-126); ALT/SGPT 45 U/L (9-52); ANION GAP 7.2 (7-16); AST/SGOT 44 U/L (14-36); BLOOD UREA NITROGEN 24 mg/dL (7-17); CARBON DIOXIDE 31.8 mmol/L (22-30); CREATININE 0.6 mg/dL (0.52-1.04); EST GLOMERULAR FILTRATION RATE > 60 ml/min; GLUCOSE,RANDOM 100 mg/dL (70-110); PLATELET ESTIMATE NORMAL (NORMAL); TOTAL PROTEIN 6.8 gm/dL (6.3-8.2)
[2017-02-13] MEDS ORDERED: HYDROCHLOROTHIAZIDE 25 MG TABLET PO SCH (10:00)
[2017-02-13] MEDS ORDERED: PREDNISONE 20 MG TAB PO SCH (10:45)
[2017-02-13] MEDS: ASPIRIN 81 MG TABEC PO SCH (10:46)
--- NOTE | 2017-02-13 12:18 | Physician Progress Note ---
Subjective - Date Date of Physician Progress Note: 02/13/17 - Subjective Subjective Comment: Approx 1800 last night rapid response team called to bedside for sudden onset chest pressure and left anterior chest pain with associated dizziness, blurred vision. EKG at that time showed A-fib with rapid ventricular rate of 150. Nursing attempted vagal procedure with patient with no success in lowering heart rate. Chest discomfort/blurred vision/dizziness resolved after several minutes after onset. Cardizem and heparin drip started, remains on telemetry. Per nursing she converted to NSR appox 0330 this am. HR remained 150-160 until conversion at 0330 in which her HR has remained 62-84. Current Heparin drip at 1200 units/hr, cardizem drip at 10mg/hr. Troponin x 3 over night #1 0.014, #2 0.048, #3 .060. Is asymptomatic this am, awaiting cardiology consult and echocardiogram. Objective - Vital Signs Vital Signs: Vital Signs - Last 24 Hrs Temp Pulse Pulse Pulse Resp BP BP 02/13/17 11:34 97.6 F 74 22 137/65 02/13/17 11:13 97.7 F 130/82 02/13/17 10:50 97.7 F 79 22 130/82 02/13/17 09:53 98.3 F 80 26 H 138/70 02/13/17 08:34 98.1 F 76 20 112/60 02/13/17 06:25 65 20 02/13/17 06:00 97.7 F 60 16 103/68 02/13/17 05:49 64 108/63 02/13/17 03:45 68 118/62 02/13/17 03:30 65 97/56 02/13/17 03:00 122 H 99/62 02/13/17 02:30 128 H 106/71 02/13/17 02:22 98.8 F 02/13/17 02:00 128 H 110/80 02/13/17 01:30 126 H 121/68 02/13/17 01:00 142 H 123/76 02/13/17 00:30 138 H 111/73 02/13/17 00:00 151 H 110/75 02/12/17 23:30 137 H 114/70 02/12/17 23:15 145 H 119/67 02/12/17 23:00 141 H 110/72 02/12/17 22:45 148 H 90/71 02/12/17 22:37 98.0 F 02/12/17 22:30 142 H 110/68 02/12/17 22:15 141 H 108/67 02/12/17 22:00 155 H 121/80 02/12/17 21:45 151 H 110/71 02/12/17 21:30 144 H 114/65 02/12/17 21:15 128 H 104/69 02/12/17 21:00 129 H 131/72 02/12/17 20:45 125 H 137/67 02/12/17 20:30 126 H 131/76 02/12/17 20:15 135 H 115/76 02/12/17 17:10 52 L 16 02/12/17 15:05 98.4 F 54 L 18 140/65 Pulse Ox 02/13/17 11:34 96 02/13/17 11:13 02/13/17 10:50 95 02/13/17 09:53 95 02/13/17 08:34 96 02/13/17 06:25 02/13/17 06:00 100 02/13/17 05:49 99 02/13/17 03:45 99 02/13/17 03:30 98 02/13/17 03:00 98 02/13/17 02:30 97 02/13/17 02:22 02/13/17 02:00 98 02/13/17 01:30 98 02/13/17 01:00 98 02/13/17 00:30 98 02/13/17 00:00 98 02/12/17 23:30 97 02/12/17 23:15 97 02/12/17 23:00 96 02/12/17 22:45 96 02/12/17 22:37 02/12/17 22:30 96 02/12/17 22:15 95 02/12/17 22:00 95 02/12/17 21:45 96 02/12/17 21:30 95 02/12/17 21:15 95 02/12/17 21:00 96 02/12/17 20:45 96 02/12/17 20:30 97 02/12/17 20:15 95 02/12/17 17:10 97 02/12/17 15:05 98 - General General Appearance: Alert, Oriented x3, Cooperative, No acute distress Limitations: No limitations - Head Head exam: Normal inspection - Eye Eye exam: Normal appearance, PERRL. negative: Conjunctival injection, Periorbital swelling - ENT ENT exam: Normal exam, Mucous membranes moist, Normal orophraynx Ear exam: Normal external inspection Nasal Exam: Normal inspection. negative: Dried blood Mouth exam: Normal external inspection, Tongue normal Teeth exam: Normal inspection. negative: Dental caries Throat exam: Normal inspection. negative: Tonsillar erythema, Tonsillomegaly, Tonsillar exudate, R peritonsillar mass, L peritonsillar mass - Neck Neck exam: Normal inspection, Full ROM. negative: Lymphadenopathy, Tenderness - Respiratory Respiratory exam: Normal lung sounds bilaterally. negative: Accessory muscle use, Chest wall tenderness, Decreased breath sounds, Prolonged expiratory, Rales , Respiratory distress, Wheezes - Cardiovascular Cardiovascular Exam: Regular rate (apical rate 56), Normal rhythm, Normal heart sounds - GI/Abdominal GI/Abdominal exam: Soft. negative: Normal bowel sounds - Rectal Rectal exam: Deferred - exam: Deferred - Extremities Extremities exam: Normal inspection, Full ROM, Normal capillary refill. negative: Tenderness - Back Back exam: Reports: Normal inspection, Full ROM. Denies: CVA tenderness (R), CVA tenderness (L), Muscle spasm, Paraspinal tenderness, Rash noted, Tenderness , Vertebral tenderness - Neurological Neurological exam: Alert, Normal gait, Oriented X3 - Psychiatric Psychiatric exam: Normal affect, Normal mood - Skin Skin exam: Dry, Intact, Normal color, Warm Assessment and Plan - Assessment and Plan (1) Pneumonia Current Visit: Yes Status: Acute Qualifiers: Pneumonia type: due to unspecified organism Laterality: left Lung location: upper lobe of lung Qualified Code(s): J18.1 - Lobar pneumonia, unspecified organism Base Code: J18.9 - PNEUMONIA, UNSPECIFIED ORGANISM Comment: 02/13/17- 76 yo f admitted w/ MARK PNA. PMHx of smoking (quit 3 mo's ago ) & h/o PNA. CXR: MARK infiltrate, interstitial changes. WBC 17.4->15.5->18.6 likely steroid induced elevation. Afebrile now though temp of 100.8 prior to admission. Blood cx's pending with preliminary report of no growth to date. Rocephin DC 02/12. - Azithromycin DC today in light of spontaneous atrial fibrillation yesterday - Continue Duo neb treatments Q 12 hours, albuterol Q 2 hours as needed - Solumedrol changed to Prednisone 60mg QD due to IV incompatablility with Cardizem and Heparin - sputum culture pending - legionaire culture pending - Clinical improvement, will plan discharge home Thursday after echocardiogram complete and no further cardiac concerns - follow up PCP in 2 weeks (2) Bradycardia Current Visit: Yes Status: Acute Base Code: R00.1 - BRADYCARDIA, UNSPECIFIED Comment: 02/13/17- History of HTN with beta blockade. 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 Pulse 48 . patient had been feeling increasingly weak, sluggish with some improvement of symptoms today. Coreg on hold, pulse <60. - ACS work up 02/10- troponin X3 negative, 2 previous EKG- SR, left atrial enlargement, non-specific T wave abnormalities. Cardiology consult 02/11- new order for echo, Dr Payne prefers patient remain inpatient for monitoring of persistent bradycardia until echo is completed 02/13. - spontaneous a-fib with rapid ventricular response 1800 02/12. (3) HTN (hypertension) Current Visit: Yes Status: Acute Base Code: I10 - ESSENTIAL (PRIMARY) HYPERTENSION Comment: 02/13/17- History of HTN managed by PCP. New onset bradycardia with continued need for antihypertensive agent. ACS rule out complete at that time, troponin x 3 negative. Cardiology consult complete with new order for echo. 02/12/17 appox 1830 had spontaneous onset a-fib with RVR, heparin and cardizem drip started at that time. Converted to NSR 0330 02/13 with controlled rate 62-80, BP 112/60. Plan transfer to [facility] for further cardiac work up and evaluation for pacemaker for sick sinus syndrome. (4) DVT prophylaxis Current Visit: Yes Status: Acute Base Code: [id number] - Comment: 02/13/17: moderate risk noting decreased mobility and age. encouraged ambulation. lovenox 40 mg sq qd during this hospitalization (5) Full code status Current Visit: Yes Status: Acute Base Code: Z78.9 - OTHER SPECIFIED HEALTH STATUS Comment: 02/13/17: patient is full code during this hospitalization Results - Labs Result Diagrams: 02/13/17 07:40 02/13/17 07:40 Labs Last 24 Hours: Laboratory Results - last 24 hr 02/12/17 02/12/17 02/12/17 19:45 19:45 19:45 WBC RBC Hgb Hct MCV MCH MCHC RDW Plt Count MPV Neutrophils % Lymphocytes % Monocytes % Eosinophils % Basophils % Platelet Estimate RBC Morphology PT 10.9 INR 0.96 APTT 44.80 H Sodium Potassium Chloride Carbon Dioxide Anion Gap BUN Creatinine Estimated GFR Random Glucose Calcium Total Bilirubin AST ALT Alkaline Phosphatase CK-MB (CK-2) 0.7 Troponin I Total Protein Albumin Globulin Albumin/Globulin Ratio 02/12/17 02/13/17 02/13/17 19:45 02:05 02:05 WBC RBC Hgb Hct MCV MCH MCHC RDW Plt Count MPV Neutrophils % Lymphocytes % Monocytes % Eosinophils % Basophils % Platelet Estimate RBC Morphology PT INR APTT Sodium Potassium Chloride Carbon Dioxide Anion Gap BUN Creatinine Estimated GFR Random Glucose Calcium Total Bilirubin AST ALT Alkaline Phosphatase CK-MB (CK-2) 1.3 Troponin I 0.014 0.048 H Total Protein Albumin Globulin Albumin/Globulin Ratio 02/13/17 02/13/17 02/13/17 02:05 07:40 07:40 WBC 16.6 H RBC 4.79 Hgb 14.2 Hct 43.4 MCV 90.6 MCH 29.6 MCHC 32.7 RDW 14.3 Plt Count 334 MPV 10.5 H Neutrophils % 73.0 Lymphocytes % 21.0 Monocytes % 6.0 Eosinophils % Not Reportable Basophils % Not Reportable Platelet Estimate Normal RBC Morphology Normal PT INR APTT 33.40 41.50 H Sodium Potassium Chloride Carbon Dioxide Anion Gap BUN Creatinine Estimated GFR Random Glucose Calcium Total Bilirubin AST ALT Alkaline Phosphatase CK-MB (CK-2) Troponin I Total Protein Albumin Globulin Albumin/Globulin Ratio 02/13/17 02/13/17 02/13/17 07:40 07:40 07:40 WBC RBC Hgb Hct MCV MCH MCHC RDW Plt Count MPV Neutrophils % Lymphocytes % Monocytes % Eosinophils % Basophils % Platelet Estimate RBC Morphology PT INR APTT Sodium 141 Potassium 3.5 Chloride 102 Carbon Dioxide 31.8 H Anion Gap 7.2 BUN 24 H Creatinine 0.6 Estimated GFR > 60 Random Glucose 100 Calcium 8.6 Total Bilirubin 0.30 AST 44 H ALT 45 Alkaline Phosphatase 95 CK-MB (CK-2) 1.6 Troponin I 0.060 H Total Protein 6.8 Albumin 3.4 L Globulin 3.4 Albumin/Globulin Ratio 1.0 L DVT/PE Assessment - Risk for VTE Risk for VTE: No Risk Level: Moderate (age, decreased mobility) Risk Assessment Date: 02/09/17 Risk Assessment Time: 11:00 VTE Orders Placed or Will Be Placed: Yes - Active Medicaitons Current Medications: Current Medications Acetaminophen (Tylenol 500mg Tab) 1,000 mg PO Q6H PRN PRN Reason: Pain - Mild (1-4) Hydrocodone Bitart/Acetaminophen ([place] 5mg/325mg) 1 each PO Q4H PRN PRN Reason: Pain - Moderate (5-7) Last Admin: 02/11/17 10:02 Dose: 1 each Albuterol Sulfate () 2.5 mg INH RESP.Q2H PRN PRN Reason: DIFFICULTY IN BREATHING Albuterol/Ipratropium (Duoneb) 3 ml INH RESP.Q12H HEATH Last Admin: 02/13/17 06:25 Dose: 3 ml Alprazolam (Xanax) 0.5 mg PO Q6H PRN PRN Reason: ANXIETY Last Admin: 02/13/17 00:21 Dose: 0.5 mg Aspirin (Ecotrin (Ec)) 81 mg PO DAILY HEATH Last Admin: 02/13/17 10:46 Dose: 81 mg Hydrochlorothiazide (Hctz 25mg) 25 mg PO DAILY HEATH Last Admin: 02/13/17 10:47 Dose: 25 mg Diltiazem HCl 125 mg/ Sodium (Chloride) 125 mls @ 5 mls/hr IV TITRATE HEATH; 5 MG /HR PRN Reason: Protocol Last Titration: 02/13/17 03:30 Dose: 10 mg/hr Heparin Sodium/Dextrose 25,000 (units/ Dextrose) 500 mls @ 16.05 mls/hr IV TITRATE HEATH; 15 UNITS/KG/HR PRN Reason: Protocol Last Titration: 02/13/17 02:50 Dose: 18.68 units/kg/hr Prednisone (Prednisone 20mg) 60 mg PO DAILYWM HEATH Last Admin: 02/13/17 10:50 Dose: 60 mg AMI Plan - Labs Result Diagrams: 02/13/17 07:40 02/13/17 07:40
--- NOTE | 2017-02-13 13:58 | Discharge Summary ---
Providers Discharge Summary Date: 02/13/17 Date of admission: 02/09/17 21:32 Expected Date of Discharge: 02/13/17 (Transfer [facility]) Attending physician: KALPESH DODD Primary care physician: MERYL MOODY Consults: Consult Orders 02/10/17 17:14 Consult - Cardiology NOW Consulting Provider: CHEMA APDILLA Physician Instructions: Reason For Exam: Bradycardia with need for HTN management Does pt have current supervisor blooming mill?: Not Established Physical Exam - Vital Signs Vital Signs: Vital Signs - Last 24 Hrs Temp Pulse Pulse Pulse Resp BP BP 02/13/17 13:20 70 20 125/70 02/13/17 11:34 97.6 F 74 22 137/65 02/13/17 11:13 97.7 F 130/82 02/13/17 10:50 97.7 F 79 22 130/82 02/13/17 09:53 98.3 F 80 26 H 138/70 02/13/17 09:00 66 20 02/13/17 08:34 98.1 F 76 20 112/60 02/13/17 06:25 65 20 02/13/17 06:00 97.7 F 60 16 103/68 02/13/17 05:49 64 108/63 02/13/17 03:45 68 118/62 02/13/17 03:30 65 97/56 02/13/17 03:00 122 H 99/62 02/13/17 02:30 128 H 106/71 02/13/17 02:22 98.8 F 02/13/17 02:00 128 H 110/80 02/13/17 01:30 126 H 121/68 02/13/17 01:00 142 H 123/76 02/13/17 00:30 138 H 111/73 02/13/17 00:00 151 H 110/75 02/12/17 23:30 137 H 114/70 02/12/17 23:15 145 H 119/67 02/12/17 23:00 141 H 110/72 02/12/17 22:45 148 H 90/71 02/12/17 22:37 98.0 F 02/12/17 22:30 142 H 110/68 02/12/17 22:15 141 H 108/67 02/12/17 22:00 155 H 121/80 02/12/17 21:45 151 H 110/71 02/12/17 21:30 144 H 114/65 02/12/17 21:15 128 H 104/69 02/12/17 21:00 129 H 131/72 02/12/17 20:45 125 H 137/67 02/12/17 20:30 126 H 131/76 02/12/17 20:15 135 H 115/76 02/12/17 17:10 52 L 16 02/12/17 15:05 98.4 F 54 L 18 140/65 Pulse Ox 02/13/17 13:20 94 L 02/13/17 11:34 96 02/13/17 11:13 02/13/17 10:50 95 02/13/17 09:53 95 02/13/17 09:00 02/13/17 08:34 96 02/13/17 06:25 02/13/17 06:00 100 02/13/17 05:49 99 02/13/17 03:45 99 02/13/17 03:30 98 02/13/17 03:00 98 02/13/17 02:30 97 02/13/17 02:22 02/13/17 02:00 98 02/13/17 01:30 98 02/13/17 01:00 98 02/13/17 00:30 98 02/13/17 00:00 98 02/12/17 23:30 97 02/12/17 23:15 97 02/12/17 23:00 96 02/12/17 22:45 96 02/12/17 22:37 02/12/17 22:30 96 02/12/17 22:15 95 02/12/17 22:00 95 02/12/17 21:45 96 02/12/17 21:30 95 02/12/17 21:15 95 02/12/17 21:00 96 02/12/17 20:45 96 02/12/17 20:30 97 02/12/17 20:15 95 02/12/17 17:10 97 02/12/17 15:05 98 - General General Appearance: Alert, Oriented x3, Cooperative, No acute distress Limitations: No limitations - Head Head exam: Normal inspection - Eye Eye exam: Normal appearance, PERRL. negative: Conjunctival injection, Periorbital swelling - ENT ENT exam: Normal exam, Mucous membranes moist, Normal orophraynx Ear exam: Normal external inspection Nasal Exam: Normal inspection. negative: Dried blood Mouth exam: Normal external inspection, Tongue normal Teeth exam: Normal inspection. negative: Dental caries Throat exam: Normal inspection. negative: Tonsillar erythema, Tonsillomegaly, Tonsillar exudate, R peritonsillar mass, L peritonsillar mass - Neck Neck exam: Normal inspection, Full ROM. negative: Lymphadenopathy, Tenderness - Respiratory Respiratory exam: Normal lung sounds bilaterally. negative: Accessory muscle use, Chest wall tenderness, Decreased breath sounds, Prolonged expiratory, Rales , Respiratory distress, Wheezes - Cardiovascular Cardiovascular Exam: Regular rate (apical rate 56), Normal rhythm, Normal heart sounds - GI/Abdominal GI/Abdominal exam: Soft. negative: Normal bowel sounds - Rectal Rectal exam: Deferred - exam: Deferred - Extremities Extremities exam: Normal inspection, Full ROM, Normal capillary refill. negative: Tenderness - Back Back exam: Reports: Normal inspection, Full ROM. Denies: CVA tenderness (R), CVA tenderness (L), Muscle spasm, Paraspinal tenderness, Rash noted, Tenderness , Vertebral tenderness - Neurological Neurological exam: Alert, Normal gait, Oriented X3 - Psychiatric Psychiatric exam: Normal affect, Normal mood - Skin Skin exam: Dry, Intact, Normal color, Warm Hospitalization - Hospitalization Admission Diagnosis: Pneumonia - Problem List/Discharge Diagnosis (1) Sick sinus syndrome Current Visit: Yes Status: Acute Base Code: I49.5 - SICK SINUS SYNDROME Comment: 02/13- Transfer to [facility] for further cardiac work up and evaluation (2) Atrial fibrillation with RVR Current Visit: Yes Status: Acute Base Code: I48.91 - UNSPECIFIED ATRIAL FIBRILLATION Comment: 02/13- Spontaneous atrial fibrillation with RVR 1830 02/12/17. Converted to NSR with controlled rate 0330 02/13. Cardizem and heparin drip converted to Eliquis 5mg BID and Coreg 6.25mg BID at time of transfer (3) Pneumonia Current Visit: Yes Status: Acute Discharge Diagnosis: Pneumonia type: due to unspecified organism Laterality: left Lung location: upper lobe of lung Qualified Code(s): J18.1 - Lobar pneumonia, unspecified organism Base Code: J18.9 - PNEUMONIA, UNSPECIFIED ORGANISM Comment: 3/31/17- 76 yo f admitted w/ MARK PNA. PMHx of smoking (quit 3 mo's ago ) & h/o PNA. CXR: MARK infiltrate, interstitial changes. WBC 17.4->15.5->18.6 likely steroid induced elevation. Afebrile now though temp of 100.8 prior to admission. Blood cx's pending with preliminary report of no growth to date. Rocephin DC 02/12. - Azithromycin DC today in light of spontaneous atrial fibrillation yesterday - Continue Duo neb treatments Q 12 hours, albuterol Q 2 hours as needed - Solumedrol changed to Prednisone 60mg QD due to IV incompatablility with Cardizem and Heparin - sputum culture pending - legionaire culture pending - Clinical improvement, will plan discharge home Thursday after echocardiogram complete and no further cardiac concerns - follow up PCP in 2 weeks (4) Bradycardia Current Visit: Yes Status: Acute Base Code: R00.1 - BRADYCARDIA, UNSPECIFIED Comment: 02/13/17- History of HTN with beta blockade. No supervisor blooming mill. Pulse 48 . patient had been feeling increasingly weak, sluggish with some improvement of symptoms today. Coreg on hold, pulse <60. - ACS work up 02/10- troponin X3 negative, 2 previous EKG- SR, left atrial enlargement, non-specific T wave abnormalities. Cardiology consult 02/11- new order for echo, Dr Padilla prefers patient remain inpatient for monitoring of persistent bradycardia until echo is completed 02/13. - spontaneous a-fib with rapid ventricular response 1800 02/12. (5) HTN (hypertension) Current Visit: Yes Status: Acute Base Code: I10 - ESSENTIAL (PRIMARY) HYPERTENSION Comment: 02/13/17- History of HTN managed by PCP. New onset bradycardia with continued need for antihypertensive agent. ACS rule out complete at that time, troponin x 3 negative. Cardiology consult complete with new order for echo. 02/12/17 appox 1830 had spontaneous onset a-fib with RVR, heparin and cardizem drip started at that time. Converted to NSR 0330 02/13 with controlled rate 62-80, BP 112/60. Plan transfer to [facility] for further cardiac work up and evaluation for pacemaker for sick sinus syndrome. (6) DVT prophylaxis Current Visit: Yes Status: Acute Base Code: [id number] - Comment: 02/13/17: moderate risk noting decreased mobility and age. encouraged ambulation. lovenox 40 mg sq qd during this hospitalization (7) Full code status Current Visit: Yes Status: Acute Base Code: Z78.9 - OTHER SPECIFIED HEALTH STATUS Comment: 02/13/17: patient is full code during this hospitalization - Hospitalization Course Hospital Course: History of Present Illness: 76 yo female admitted for MARK pneumonia. PMHx of smoking (quit 3 mo's ago, 1ppd x 20 + years), history of pneumonia, insomnia, anxiety, and low back pain. Presented to our ED after one week of worsening cough, fever and chills. Patient received PO Levaquin in early January from her PCP for lower respiratory infection. Upon presentation to our ED, temperature of 100.8, HR 65, RR 20, blood pressure 200/75, pulse ox of 97 % on RA. WBC 17.4, hgb 14.6, hct 44.3, plt 350, relatively normal BMP, CE negative x 3. negative influenza. Blood cx pending. CXR: chronic interstitial changes with superimposed infiltrate in MARK consistent w/ PNA. EKG: NSR, rate of 64, intervals/axis normal, possible LVH, no acute ST or ischemic changes. While in the ER, patient's oxygen varied between the 80-90s though patient improved following Duo neb treatment. Patient started on PO Azithromycin, 1 gm of Rocephin Q12 hours, 60 mg of IV Solumedrol and 100 mls/hr of IVF's. Patient placed on Telemetry and admitted for further medical management. History of HTN with beta blockade. No supervisor blooming mill. Pulse 48 02/10. Patient reports had been feeling increasingly weak, sluggish with some improvement of symptoms. Coreg on hold, pulse <60. - ACS work up 02/10- troponin X3 negative, 2 previous EKG- SR, left atrial enlargement, non-specific T wave abnormalities. Cardiology consult 02/11- new order for echo, Dr Padilla prefers patient remain inpatient for monitoring of persistent bradycardia until echo is completed 02/13. Approx 1800 02/12 rapid response team called to bedside for sudden onset chest pressure and left anterior chest pain with associated dizziness, blurred vision. EKG at that time showed A-fib with rapid ventricular rate of 150. Nursing attempted vagal procedure with patient with no success in lowering heart rate. Chest discomfort/blurred vision/dizziness resolved after several minutes after onset. Cardizem and heparin drip started, remains on telemetry. Per nursing she converted to NSR appox 0330 this am. HR remained 150-160 until conversion at 0330 in which her HR has remained 62-84. Current Heparin drip at 1200 units/hr, cardizem drip at 10mg/hr. Troponin x 3 over night #1 0.014, #2 0.048, #3 .060. Is asymptomatic this am. Spoke with Dr. 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 PCP: Meryl Che Procedures: Cardiology Procedures 02/10/17 17:24 EKG NOW 02/11/17 13:19 Echo W/CF & Cardiac Doppler NOW 02/12/17 18:19 EKG NOW 02/13/17 03:58 EKG NOW Abnormal Labs: Abnormal Lab Results 02/10/17 02/10/17 02/12/17 Range/Units 06:10 06:10 19:45 WBC 18.6 H (4.2-12.2) K/uL MPV 10.6 H (7.4-10.4) fl APTT 44.80 H (24.5-39.1) SECONDS Potassium 3.4 L (3.5-5.1) mmol/L Chloride 113 H (98-107) mmol/L Carbon Dioxide (22-30) mmol/L Anion Gap 6.7 L (7-16) BUN 18 H (7-17) mg/dL Creatinine 0.5 L (0.52-1.04) mg/dL AST (14-36) U/L Troponin I (0.00-0.034) ng/mL Albumin (3.5-5.0) gm/dL Albumin/Globulin Ratio (1.1-1.8) 02/13/17 02/13/17 02/13/17 Range/Units 02:05 07:40 07:40 WBC 16.6 H (4.2-12.2) K/uL MPV 10.5 H (7.4-10.4) fl APTT 41.50 H (24.5-39.1) SECONDS Potassium (3.5-5.1) mmol/L Chloride (98-107) mmol/L Carbon Dioxide (22-30) mmol/L Anion Gap (7-16) BUN (7-17) mg/dL Creatinine (0.52-1.04) mg/dL AST (14-36) U/L Troponin I 0.048 H (0.00-0.034) ng/mL Albumin (3.5-5.0) gm/dL Albumin/Globulin Ratio (1.1-1.8) 02/13/17 02/13/17 Range/Units 07:40 07:40 WBC (4.2-12.2) K/uL MPV (7.4-10.4) fl APTT (24.5-39.1) SECONDS Potassium (3.5-5.1) mmol/L Chloride (98-107) mmol/L Carbon Dioxide 31.8 H (22-30) mmol/L Anion Gap (7-16) BUN 24 H (7-17) mg/dL Creatinine (0.52-1.04) mg/dL AST 44 H (14-36) U/L Troponin I 0.060 H (0.00-0.034) ng/mL Albumin 3.4 L (3.5-5.0) gm/dL Albumin/Globulin Ratio 1.0 L (1.1-1.8) Condition at Discharge: (1) Good Discharge Medications - Discharge Medications Home Medications: Ambulatory Orders Carvedilol 12.5 mg PO BID 04/26/15 [Last Taken 04/26/15] Aspirin [Adult Low Dose Aspirin EC] 81 mg PO DAILY 08/03/15 [Last Taken Unknown] Lorazepam 0.5 mg PO ASDIR PRN 02/08/17 [Last Taken Unknown] Zolpidem Tartrate [Ambien] 10 mg PO QHS PRN 02/08/17 [Last Taken Unknown] Acetaminophen [Tylenol 500Mg Tab] 1,000 mg PO Q6H PRN #0 tablet 02/13/17 [Last Taken Unknown] Albuterol Sulfate 0.083% [Neb] 2.5 mg INH RESP.Q2H PRN #0 nebulization solution 02/13/17 [Last Taken Unknown] Alprazolam [Xanax] 0.5 mg PO Q6H PRN #0 tablet 02/13/17 [Last Taken Unknown] Apixaban [Eliquis] 5 mg PO BID tablet 02/13/17 [Last Taken Unknown] Aspirin Enteric-Coated [Ecotrin (EC)] 81 mg PO DAILY tabec 02/13/17 [Last Taken Unknown] Carvedilol [Coreg] 6.25 mg PO BID tablet 02/13/17 [Last Taken Unknown] Hydrochlorothiazide [Hctz] 25 mg PO DAILY tablet 02/13/17 [Last Taken Unknown] Ipratropium/Albuterol [Duoneb] 3 ml INH RESP.Q12H ampul.neb 02/13/17 [Last Taken Unknown] Prednisone [Prednisone 20Mg] 60 mg PO DAILYWM tab 02/13/17 [Last Taken Unknown] Discharge Plan - Discharge Instructions Activity at Discharge: Increase Activity as Tolerated Diet at Discharge: Low Fat, Low Cholesterol Additional Instructions: [place] instant breakfast mixed w/ skim milk (ok chocolate flavor first with due to caffeine). Try to drink at least 1-2 daily between meals to prevent further weight loss
[2017-02-13] MEDS ORDERED: APIXABAN 5MG TABLET PO SCH (14:00)
[2017-02-13] MEDS ORDERED: CARVEDILOL 3.125 MG TABLET PO SCH (14:00)
== END 2017-02-13 17:45 | disposition short-term general hospital (02) | DRG 195 ==
LOC: ER 16:54 → UNDOADMOB 19:31 → MEDSURG 19:31 → INTOOBSV 02-09 10:52 → MEDSURG 02-09 10:52 → OBSVTOIN 02-09 10:52 → MEDSURG 02-09 20:28 → UNDOADMOB 02-09 20:28 → MEDSURG 02-09 21:32 → UNDOADMOB 02-09 21:32 → OBSVTOIN 02-09 21:32 → INTOOBSV 02-09 21:32
PROVIDERS: ADMIT Family Medicine; ATTEND Family Medicine
DX: J18.9 Pneumonia, unspecified organism (principal); I10 Essential (primary) hypertension; R00.1 Bradycardia, unspecified; R53.83 Other fatigue
CPT/HCPCS: 71020; 80048; 80053; 82553; 84484; 85027; 85610; 85730; 87400; 93005; 93010; 93041; 93306; 94640; 94760; 96365; 99223; 99233; 99239; 99285; J1650; J2930; J7512

== ENCOUNTER 2018-04-25 10:49 | Emergency (ER) | payer MEDICARE ==
--- NOTE | 2018-04-25 11:14 | Emergency Department Record ---
History of Present Illness - General Chief Complaint: Shortness of breath Stated Complaint: SHORTNESS OF BREATH Time Seen by Provider: 04/25/18 11:12 Source: Patient Mode of Arrival: Ambulatory - History of Present Illness Initial Comments: sob and she is getting evicked from her apartment and she is very anxious and was hyperventilating and she had numb hands and they are feeling better. Patient has copd and she is cutting back on cigs and she was a heavy smoker in the past MD Complaint: Anxiety Onset/Timin -: Days(s) Consistency: Intermittent Improves With: Nothing Worsens With: Nothing Known History Of: Congestive heart failure Context: Medication noncompliance Associated Symptoms: Denies other symptoms Treatments Prior to Arrival: Asprin Treatment Prior to Arrival Comment:: Takes asa daily, reg. strength - Related Data Home Oxygen Therapy: No Previous Rx's Medication Instructions Recorded Aspirin Enteric-Coated [Ecotrin 81 mg PO DAILY tabec 02/13/17 (EC)] Allergies Allergy/AdvReac Type Severity Reaction Status Date / Time Penicillins Allergy HIVES Verified 04/25/18 10:57 Travel Screening - Travel/Exposure Within Last 30 Days Have you traveled within the last 30 days?: No - Travel/Exposure Within Last Year Have you traveled outside the [place] in the last year?: No - Additonal Travel Details Have you been exposed to anyone with a communicable illness?: No - Travel Symptoms Symptom Screening: None Review of Systems Reviewed: No additional complaints except as noted below Constitutional: Reports: As per HPI. Denies: Chills, Fever, Malaise, Night sweats, Weakness, Weight change Eyes: Reports: As per HPI. Denies: Eye discharge, Eye pain, Photophobia, Vision change ENT: Reports: As per HPI. Denies: Congestion, Dental pain, Ear pain, Epistaxis , Hearing loss, Throat pain Respiratory: Reports: As per HPI, Dyspnea. Denies: Cough, Hemoptysis, Stridor, Wheezes Cardiovascular: Reports: As per HPI. Denies: Arrhythmia, Chest pain, Dyspnea on exertion, Edema, Murmurs, Orthopnea, Palpitations, Paroxysmal nocturnal dyspnea, Rheumatic Fever, Syncope Endocrine: Reports: As per HPI. Denies: Fatigue, Heat or cold intolerance, Polydipsia, Polyuria Gastrointestinal: Reports: As per HPI. Denies: Abdominal pain, Constipation, Diarrhea, Hematemesis, Hematochezia, Melena, Nausea, Vomiting Genitourinary: Reports: As per HPI. Denies: Abnormal menses, Discharge, Dyspareunia, Dysuria, Frequency, Hematuria, Incontinence, Retention, Urgency Musculoskeletal: Reports: As per HPI. Denies: Arthralgia, Back pain, Gout, Joint swelling, Myalgia, Neck pain Skin: Reports: As per HPI. Denies: Bruising, Change in color, Change in hair/ nails, Lesions, Pruritus, Rash Neurological: Reports: As per HPI. Denies: Abnormal gait, Confusion, Headache, Numbness, Paresthesias, Seizure, Tingling, Tremors, Vertigo, Weakness Psychiatric: Reports: As per HPI. Denies: Anxiety, Auditory hallucinations, Depression, Homicidal thoughts, Suicidal thoughts, Visual hallucinations Hematological/Lymphatic: Reports: As per HPI. Denies: Anemia, Blood Clots, Easy bleeding, Easy bruising, Swollen glands Past Medical History - SOCIAL HISTORY Smoking Status: Light tobacco smoker (<10/day) Alcohol Use: None Drug Use: None - RESPIRATORY Hx Respiratory Disorders: No - CARDIOVASCULAR Hx Cardio Disorders: Yes Comment:: Heart murmur, BNP of 1200 per Pt. - NEURO Hx Neuro Disorders: No - GI Hx GI Disorders: No - Hx Genitourinary Disorders: No - ENDOCRINE Hx Endocrine Disorders: No - MUSCULOSKELETAL Hx Musculoskeletal Disorders: Yes - PSYCH Hx Psych Problems: No - HEMATOLOGY/ONCOLOGY Hx Hematology/Oncology Disorders: No Family Medical History Any Significant Family History?: Yes Hx Cancer: Father Physical Exam - General General Appearance: Alert, Oriented x3, Cooperative, No acute distress - Head Head exam: Normal inspection - Eye Eye exam: Normal appearance, PERRL Pupils: Normal accommodation - ENT ENT exam: Normal exam, Mucous membranes moist, Normal external ear exam, Normal orophraynx, TM's normal bilaterally Ear exam: Normal external inspection. negative: External canal tenderness Nasal Exam: Normal inspection. negative: Discharge, Sinus tenderness Mouth exam: Normal external inspection, Tongue normal Teeth exam: Normal inspection. negative: Dental caries Throat exam: Normal inspection. negative: Tonsillar erythema, Tonsillar exudate - Neck Neck exam: Normal inspection, Full ROM. negative: Tenderness - Respiratory Respiratory exam: Normal lung sounds bilaterally, Wheezes. negative: Respiratory distress - Cardiovascular Cardiovascular Exam: Regular rate, Normal rhythm, Normal heart sounds - GI/Abdominal GI/Abdominal exam: Soft, Normal bowel sounds. negative: Tenderness - Rectal Rectal exam: Deferred - exam: Deferred - Extremities Extremities exam: Normal inspection, Full ROM, Normal capillary refill. negative: Tenderness - Back Back exam: Reports: Normal inspection, Full ROM. Denies: Muscle spasm, Rash noted, Tenderness - Neurological Neurological exam: Alert, Normal gait, Oriented X3, Reflexes normal - Psychiatric Psychiatric exam: Normal affect, Normal mood - Skin Skin exam: Dry, Intact, Normal color, Warm Course Vital Signs 04/25/18 11:01 Temperature 98.2 F Pulse Rate 71 Respiratory 18 Rate Blood Pressure 172/81 Pulse Ox 99 Medical Decision Making - Data Complexity MDM Data: Labs Ordered and/or Reviewed, X-Ray Ordered and/or Reviewed (right upper lung nodule) - Lab Data Result diagrams: 04/25/18 11:45 04/25/18 11:45 Disposition Clinical Impression: Bronchitis, Nodule of right lung COPD (chronic obstructive pulmonary disease) Qualifiers: COPD type: chronic bronchitis Chronic bronchitis type: unspecified Qualified Code(s): J42 - Unspecified chronic bronchitis Disposition: Home, Self-Care Condition: (1) Good Instructions: Acute Bronchitis (ED), COPD (Chronic Obstructive Pulmonary Disease) (ED) Additional Instructions: follow up with family in one week use ventolin inhaler 2 puffs every 4 hours as needed patient needs follow up on her pulmonary nodule see chest xray Forms: Patient Portal Access Time of Disposition: 12:44 Quality - Quality Measures Quality Measures: N/A - Blood Pressure Screening Does Patient Have Any of the Following: No Blood Pressure Classification: Pre-Hypertensive BP Reading Systolic Measurement: 172 Diastolic Measurement: 81 Screening for High Blood Pressure: < Pre-Hypertensive BP, F/U Documented > [ [id number]] Pre-Hypertensive Follow-up Interventions: Referral to alternative/primary care provider.
[2018-04-25] MEDS: ALBUTEROL HFA 8 GM INHALER INH ONE (11:37)
[2018-04-25 11:48] LABS: BASO % 0.4 % (0-6); EOS % 2.5 % (0-6); GRAN % 57.6 % (47-80); HEMATOCRIT 48.2 % (35.0-47.0); HEMOGLOBIN 15.6 gm/dl (11.6-16.0); LYMPH % 34.3 % (16-45); MEAN CELL VOLUME 91.5 fl (81-97); MEAN CORPUSCULAR HEMOGLOBIN 29.6 pg (27-33); MEAN CORPUSCULAR HGB CONC 32.4 g/dl (32-36); MEAN PLATELET VOLUME 10.4 fl (7.4-10.4); MONO % 5.2 % (0-9); PLATELET COUNT 348 K/uL (130-400); RED BLOOD COUNT 5.27 M/uL (3.80-5.40); RED CELL DISTRIBUTION WIDTH 14.2 % (11.5-14.5); WHITE BLOOD COUNT W/O DIFF 6.7 K/uL (4.2-12.2)
[2018-04-25] MEDS: LORAZEPAM 0.5 MG TABLET PO ONE (11:58)
[2018-04-25 12:01] LABS: BLOOD UREA NITROGEN 16 mg/dL (8-23); CREATININE 0.5 mg/dL (0.5-0.9); EST GLOMERULAR FILTRATION RATE > 60 mL/min
[2018-04-25 12:04] LABS: GLUCOSE,RANDOM 96 mg/dL (74-109)
--- NOTE | 2018-04-26 14:39 | RADIOLOGY REPORT ---
EXAM: CHEST, TWO VIEWS HISTORY: CHEST PAIN. TECHNIQUE: Frontal and lateral views of the chest were obtained. Comparison: 02/10/17 chest. FINDINGS: The heart size is normal. Severe underlying emphysema with biapical pleural thickening and scarring. Osteopenia. No pneumothorax. Nodular opacity in the right upper lobe, measuring approximately 2.2 cm. This is nonspecific. This partially overlies the adjacent rib end. IMPRESSION: 1. SEVERE EMPHYSEMA WITH BIAPICAL PLEURAL THICKENING AND SCARRING. BIAPICAL BRONCHIECTASIS. 2. VAGUE 2.2 CM NODULAR DENSITY IN THE RIGHT UPPER LOBE. A TRUE PULMONARY NODULE WAS NOT EXCLUDED. CONSIDER FURTHER ASSESSMENT WITH DEDICATED CT. JOB NUMBER: [id number] MTDD
== END 2018-04-25 12:50 | disposition home or self-care (01) ==
LOC: ER 10:49
DX: J20.9 Acute bronchitis, unspecified (principal); J44.9 Chronic obstructive pulmonary disease, unspecified; R20.0 Anesthesia of skin; F17.210 Nicotine dependence, cigarettes, uncomplicated; R91.1 Solitary pulmonary nodule
CPT/HCPCS: 71046; 80048; 84484; 85025; 93005; 93010; 94640; 99284

== ENCOUNTER 2018-09-05 10:39 | Emergency (ER) | payer MEDICARE ==
[2018-09-05] MEDS ORDERED: IPRATROPIUM/ALBUTEROL (0.5MG/3MG) NEB INH ONE (11:05)
[2018-09-05] MEDS ORDERED: METHYLPREDNISOLONE PF 125MG/VIAL IVP ONE (11:07)
--- NOTE | 2018-09-05 11:24 | Emergency Department Record ---
History of Present Illness - General Chief complaint: Cold Stated complaint: COLD Time Seen by Provider: 09/05/18 10:58 Source: Patient Mode of Arrival: Ambulatory Limitations: No limitations - History of Present Illness Initial comments: pt has had a cold and is coughing productive green cough. no fever. she is not sob but feels a rattling in her chest. she has been using her inhaler. she stopped smoking 6mos ago Onset/Timin -: Days(s) Severity: Mild Improves with: None Worsens with: None Associated Symptoms: Cough - Related Data Home Medications Medication Instructions Recorded Confirmed Last Taken Alprazolam 0.25 mg PO QHS 09/05/18 09/05/18 Unknown Hydrocodone/Acetaminophen [[place] 1 each PO ASDIR 09/05/18 09/05/18 Unknown 5-325 Tablet] Previous Rx's Medication Instructions Recorded Aspirin Enteric-Coated [Ecotrin 81 mg PO DAILY tabec 02/13/17 (EC)] Azithromycin [Zithromax] 250 mg PO DAILY #6 tab 09/05/18 Prednisone [Prednisone 20Mg] 20 mg PO Q12HR #6 tab 09/05/18 Allergies Allergy/AdvReac Type Severity Reaction Status Date / Time Penicillins Allergy HIVES Verified 09/05/18 10:49 Travel Screening - Travel/Exposure Within Last 30 Days Have you traveled within the last 30 days?: No Review of Systems Reviewed: No additional complaints except as noted below Constitutional: Reports: As per HPI. Denies: Chills, Fever, Malaise, Night sweats, Weakness, Weight change Eyes: Reports: As per HPI. Denies: Eye discharge, Eye pain, Photophobia, Vision change ENT: Reports: As per HPI. Denies: Congestion, Dental pain, Ear pain, Epistaxis , Hearing loss, Throat pain Respiratory: Reports: As per HPI, Cough. Denies: Dyspnea, Hemoptysis, Stridor, Wheezes Cardiovascular: Reports: As per HPI. Denies: Arrhythmia, Chest pain, Dyspnea on exertion, Edema, Murmurs, Orthopnea, Palpitations, Paroxysmal nocturnal dyspnea, Rheumatic Fever, Syncope Endocrine: Reports: As per HPI. Denies: Fatigue, Heat or cold intolerance, Polydipsia, Polyuria Gastrointestinal: Reports: As per HPI. Denies: Abdominal pain, Constipation, Diarrhea, Hematemesis, Hematochezia, Melena, Nausea, Vomiting Genitourinary: Reports: As per HPI. Denies: Abnormal menses, Discharge, Dyspareunia, Dysuria, Frequency, Hematuria, Incontinence, Retention, Urgency Musculoskeletal: Reports: As per HPI. Denies: Arthralgia, Back pain, Gout, Joint swelling, Myalgia, Neck pain Skin: Reports: As per HPI. Denies: Bruising, Change in color, Change in hair/ nails, Lesions, Pruritus, Rash Neurological: Reports: As per HPI. Denies: Abnormal gait, Confusion, Headache, Numbness, Paresthesias, Seizure, Tingling, Tremors, Vertigo, Weakness Psychiatric: Reports: As per HPI. Denies: Anxiety, Auditory hallucinations, Depression, Homicidal thoughts, Suicidal thoughts, Visual hallucinations Hematological/Lymphatic: Reports: As per HPI. Denies: Anemia, Blood Clots, Easy bleeding, Easy bruising, Swollen glands Past Medical History - SOCIAL HISTORY Smoking Status: Former smoker Alcohol Use: None Drug Use: None - RESPIRATORY Hx Respiratory Disorders: No - CARDIOVASCULAR Hx Cardio Disorders: Yes - NEURO Hx Neuro Disorders: No - GI Hx GI Disorders: No - Hx Genitourinary Disorders: No - ENDOCRINE Hx Endocrine Disorders: No - MUSCULOSKELETAL Hx Musculoskeletal Disorders: Yes - PSYCH Hx Psych Problems: No - HEMATOLOGY/ONCOLOGY Hx Hematology/Oncology Disorders: No Family Medical History Any Significant Family History?: Yes Hx Cancer: Father Physical Exam - General General Appearance: Alert, Oriented x3, Cooperative, Mild distress - Head Head exam: Normal inspection - Eye Eye exam: Normal appearance, PERRL, EOMI Pupils: Normal accommodation - ENT ENT exam: Normal exam, Mucous membranes moist, Normal external ear exam, Normal orophraynx Ear exam: Normal external inspection. negative: External canal tenderness Nasal Exam: Normal inspection. negative: Discharge, Sinus tenderness Mouth exam: Normal external inspection, Tongue normal Teeth exam: Normal inspection. negative: Dental caries Throat exam: Normal inspection. negative: Tonsillar erythema, Tonsillar exudate - Neck Neck exam: Normal inspection, Full ROM. negative: Tenderness - Respiratory Respiratory exam: Rales, Rhonchi, Wheezes. negative: Respiratory distress - Cardiovascular Cardiovascular Exam: Regular rate, Normal rhythm, Normal heart sounds - GI/Abdominal GI/Abdominal exam: Soft, Normal bowel sounds. negative: Tenderness - Rectal Rectal exam: Deferred - exam: Deferred - Extremities Extremities exam: Normal inspection, Full ROM, Normal capillary refill. negative: Tenderness - Back Back exam: Reports: Normal inspection, Full ROM. Denies: Muscle spasm, Rash noted, Tenderness - Neurological Neurological exam: Alert, CN II-XII intact, Normal gait, Oriented X3 - Psychiatric Psychiatric exam: Normal affect, Normal mood - Skin Skin exam: Dry, Intact, Normal color, Warm Course Vital Signs 09/05/18 09/05/18 10:44 11:10 Temperature 97.7 F Pulse Rate 85 78 Respiratory 18 18 Rate Blood Pressure 137/81 Pulse Ox 100 100 Medical Decision Making - Lab Data Result diagrams: 09/05/18 11:25 09/05/18 11:25 Disposition Disposition: Discharge Clinical Impression: COPD (chronic obstructive pulmonary disease) with acute bronchitis Acute bronchitis Qualifiers: Bronchitis organism: unspecified organism Qualified Code(s): J20.9 - Acute bronchitis, unspecified Disposition: Home, Self-Care Condition: (1) Good Instructions: Acute Bronchitis (ED), COPD (Chronic Obstructive Pulmonary Disease) (ED) Additional Instructions: follow up with family doctor. return sooner if worse. havr ct of chest from family doctor. Prescriptions: Prednisone [Prednisone 20Mg] 20 mg PO Q12HR #6 tab Azithromycin [Zithromax] 250 mg PO DAILY #6 tab Quality - Quality Measures Quality Measures: N/A - Blood Pressure Screening Does Patient Have Any of the Following: No Blood Pressure Classification: Pre-Hypertensive BP Reading Systolic Measurement: 137 Diastolic Measurement: 81 Screening for High Blood Pressure: < Pre-Hypertensive BP, F/U Documented > [ G8950] Pre-Hypertensive Follow-up Interventions: Follow-up with rescreen every year.
[2018-09-05 11:50] LABS: BASO % 0.2 % (0-6); EOS % 1.7 % (0-6); GRAN % 73.9 % (47-80); HEMATOCRIT 40.4 % (35.0-47.0); LYMPH % 16.4 % (16-45); MEAN CELL VOLUME 91.2 fl (81-97); MEAN CORPUSCULAR HEMOGLOBIN 29.3 pg (27-33); MEAN CORPUSCULAR HGB CONC 32.2 g/dl (32-36); MEAN PLATELET VOLUME 10.6 fl (7.4-10.4); MONO % 7.8 % (0-9); PLATELET COUNT 295 K/uL (130-400); RED BLOOD COUNT 4.43 M/uL (3.80-5.40); RED CELL DISTRIBUTION WIDTH 14.7 % (11.5-14.5)
[2018-09-05 12:03] LABS: BLOOD UREA NITROGEN 15 mg/dL (8-23)
[2018-09-05 12:04] LABS: CREATININE 0.5 mg/dL (0.5-0.9); EST GLOMERULAR FILTRATION RATE > 60 mL/min; TOTAL PROTEIN 6.7 g/dL (6.6-8.7)
[2018-09-05 12:06] LABS: GLUCOSE,RANDOM 110 mg/dL (74-109)
[2018-09-05 12:09] LABS: ALBUMIN 3.4 g/dL (4.0-5.0); ALKALINE PHOSPHATASE 81 U/L (35-104); ALT/SGPT 11 U/L (<33); AST/SGOT 19 U/L (10.0-35.0)
--- NOTE | 2018-09-07 11:18 | RADIOLOGY REPORT ---
EXAM: CHEST, TWO VIEWS HISTORY: COUGH. TECHNIQUE: Two views of the chest were obtained. Comparison: Chest x-ray 04/25/18. FINDINGS: Biapical pleural scarring, right more than left. Upward retraction of the right hilum is again seen. Nodular opacity in the right upper lobe is unchanged. Peribronchial thickening is noted. No lung consolidation. No pleural effusion. The bony structures show mild degenerative changes of the spine. IMPRESSION: 1. CHRONIC SCARRING IN THE UPPER LOBES, RIGHT MORE THAN LEFT. THERE IS A RIGHT UPPER LOBE DENSITY WHICH CAN BE FURTHER EVALUATED WITH CT SCAN, THIS CAN BE DONE ON A NON-URGENT BASIS. 2. THERE IS PERIBRONCHIAL THICKENING, BUT NO LOBAR CONSOLIDATION. [facility]BER: [id number] [facility]
== END 2018-09-05 14:02 | disposition home or self-care (01) ==
LOC: ER 10:39
DX: J44.0 Chronic obstructive pulmonary disease with (acute) lower respiratory infection (principal); J20.9 Acute bronchitis, unspecified; Z87.891 Personal history of nicotine dependence
CPT/HCPCS: 71046; 80053; 83880; 85025; 94640; 96374; 99284; J2930

== ENCOUNTER 2018-11-17 16:59 | Emergency (ER) | payer MEDICARE ==
--- NOTE | 2018-11-17 17:29 | Emergency Department Record ---
History of Present Illness - General Chief Complaint: Abdominal Pain Stated Complaint: LLQ PAIN Time Seen by Provider: 11/17/18 17:22 Source: Patient Mode of Arrival: Ambulatory - History of Present Illness Initial Comments: left lower abd pain which started 3 days ago and worse last night .PCP dr. Sanchez. No vomiting , one BM 1 pm and no changes in the pain. No blood in the stool. PSH hysterectomy GB removal and bariatric surg 20 years ago. Pain is left upper quad Onset/Timin -: Days(s) Location: LLQ Radiation: Back Severity: Moderate Severity scale (1-10): 7 Quality: Other Consistency: Constant Improves With: Nothing Worsens With: Nothing Associated Symptoms: Denies other symptoms - Related Data Previous Rx's Medication Instructions Recorded Aspirin Enteric-Coated [Ecotrin 81 mg PO DAILY tabec 02/13/17 (EC)] Ciprofloxacin HCl [Cipro] 500 mg PO Q12HR #20 tablet 11/17/18 Dicyclomine HCl [Bentyl] 10 mg PO Q8H #30 cap 11/17/18 Metronidazole [Flagyl] 500 mg PO TID #30 tablet 11/17/18 Allergies Allergy/AdvReac Type Severity Reaction Status Date / Time Penicillins Allergy HIVES Verified 11/17/18 17:04 Travel Screening - Travel/Exposure Within Last 30 Days Have you traveled within the last 30 days?: No - Travel/Exposure Within Last Year Have you traveled outside the [place] in the last year?: No - Additonal Travel Details Have you been exposed to anyone with a communicable illness?: No - Travel Symptoms Symptom Screening: None Review of Systems Reviewed: No additional complaints except as noted below Constitutional: Reports: As per HPI. Denies: Chills, Fever, Malaise, Night sweats, Weakness, Weight change Eyes: Reports: As per HPI. Denies: Eye discharge, Eye pain, Photophobia, Vision change ENT: Reports: As per HPI. Denies: Congestion, Dental pain, Ear pain, Epistaxis , Hearing loss, Throat pain Respiratory: Reports: As per HPI. Denies: Cough, Dyspnea, Hemoptysis, Stridor, Wheezes Cardiovascular: Reports: As per HPI. Denies: Arrhythmia, Chest pain, Dyspnea on exertion, Edema, Murmurs, Orthopnea, Palpitations, Paroxysmal nocturnal dyspnea, Rheumatic Fever, Syncope Endocrine: Reports: As per HPI. Denies: Fatigue, Heat or cold intolerance, Polydipsia, Polyuria Gastrointestinal: Reports: As per HPI, Abdominal pain. Denies: Constipation, Diarrhea, Hematemesis, Hematochezia, Melena, Nausea, Vomiting Genitourinary: Reports: As per HPI. Denies: Abnormal menses, Discharge, Dyspareunia, Dysuria, Frequency, Hematuria, Incontinence, Retention, Urgency Musculoskeletal: Reports: As per HPI. Denies: Arthralgia, Back pain, Gout, Joint swelling, Myalgia, Neck pain Skin: Reports: As per HPI. Denies: Bruising, Change in color, Change in hair/ nails, Lesions, Pruritus, Rash Neurological: Reports: As per HPI. Denies: Abnormal gait, Confusion, Headache, Numbness, Paresthesias, Seizure, Tingling, Tremors, Vertigo, Weakness Psychiatric: Reports: As per HPI. Denies: Anxiety, Auditory hallucinations, Depression, Homicidal thoughts, Suicidal thoughts, Visual hallucinations Hematological/Lymphatic: Reports: As per HPI. Denies: Anemia, Blood Clots, Easy bleeding, Easy bruising, Swollen glands Past Medical History - SOCIAL HISTORY Smoking Status: Former smoker Alcohol Use: None Drug Use: None - RESPIRATORY Hx Respiratory Disorders: No - CARDIOVASCULAR Hx Cardio Disorders: Yes Comment:: Heart murmur, BNP of 1200 per Pt. - NEURO Hx Neuro Disorders: No - GI Hx GI Disorders: No - Hx Genitourinary Disorders: No - ENDOCRINE Hx Endocrine Disorders: No - MUSCULOSKELETAL Hx Musculoskeletal Disorders: Yes - PSYCH Hx Psych Problems: No - HEMATOLOGY/ONCOLOGY Hx Hematology/Oncology Disorders: No Family Medical History Any Significant Family History?: Yes Hx Cancer: Father Physical Exam - General General Appearance: Alert, Oriented x3, Cooperative, No acute distress - Head Head exam: Normal inspection - Eye Eye exam: Normal appearance, PERRL Pupils: Normal accommodation - ENT ENT exam: Normal exam, Mucous membranes moist, Normal external ear exam, Normal orophraynx, TM's normal bilaterally Ear exam: Normal external inspection. negative: External canal tenderness Nasal Exam: Normal inspection. negative: Discharge, Sinus tenderness Mouth exam: Normal external inspection, Tongue normal Teeth exam: Normal inspection. negative: Dental caries Throat exam: Normal inspection. negative: Tonsillar erythema, Tonsillar exudate - Neck Neck exam: Normal inspection, Full ROM. negative: Tenderness - Respiratory Respiratory exam: Normal lung sounds bilaterally. negative: Respiratory distress - Cardiovascular Cardiovascular Exam: Regular rate, Normal rhythm, Normal heart sounds - GI/Abdominal GI/Abdominal exam: Soft, Normal bowel sounds, Guarding, Tenderness (LEFT UPPER PAIN AND EPIGASTRIC PAIN AND LEFT LOWER PAIN) - Rectal Rectal exam: Deferred - exam: Deferred - Extremities Extremities exam: Normal inspection, Full ROM, Normal capillary refill. negative: Tenderness - Back Back exam: Reports: Normal inspection, Full ROM. Denies: Muscle spasm, Rash noted, Tenderness - Neurological Neurological exam: Alert, Normal gait, Oriented X3, Reflexes normal - Psychiatric Psychiatric exam: Normal affect, Normal mood - Skin Skin exam: Dry, Intact, Normal color, Warm Course Vital Signs 11/17/18 17:11 Temperature 97.8 F Pulse Rate 60 Respiratory 18 Rate Blood Pressure 175/76 Pulse Ox 99 - Reevaluation(s) Reevaluation #1: feeling better 11/17/18 19:46 Medical Decision Making - Lab Data Result diagrams: 11/17/18 17:18 11/17/18 17:18 Disposition Clinical Impression: Diverticulitis Abdominal pain Qualifiers: Abdominal location: left lower quadrant Qualified Code(s): R10.32 - Left lower quadrant pain Disposition: Home, Self-Care Condition: (1) Good Instructions: Diverticulitis (ED) Additional Instructions: follow up with family Dr in 2-5 days low fiber diet Prescriptions: Ciprofloxacin HCl [Cipro] 500 mg PO Q12HR #20 tablet Dicyclomine HCl [Bentyl] 10 mg PO Q8H #30 cap Metronidazole [Flagyl] 500 mg PO TID #30 tablet Forms: Patient Portal Access Time of Disposition: 19:55 Quality - Quality Measures Quality Measures: N/A - Blood Pressure Screening Does Patient Have Any of the Following: No Blood Pressure Classification: Hypertensive Reading Systolic Measurement: 175 Diastolic Measurement: 76 Screening for High Blood Pressure: < First Hypertensive BP, F/U Documented > [ G8950] First Hypertensive Follow-up Interventions: Referral to alternative/primary care provider.
[2018-11-17] MEDS ORDERED: 0.9 % SODIUM CHLORIDE 1000ML 1,000 ML IV PRN (17:30)
[2018-11-17 17:47] LABS: BASO % 0.3 % (0-6); EOS % 2.5 % (0-6); GRAN % 67.3 % (47-80); HEMATOCRIT 46.4 % (35.0-47.0); HEMOGLOBIN 14.7 gm/dl (11.6-16.0); LYMPH % 25.1 % (16-45); MEAN CELL VOLUME 92.1 fl (81-97); MEAN CORPUSCULAR HEMOGLOBIN 29.2 pg (27-33); MEAN CORPUSCULAR HGB CONC 31.7 g/dl (32-36); MEAN PLATELET VOLUME 10.1 fl (7.4-10.4); MONO % 4.8 % (0-9); PLATELET COUNT 350 K/uL (130-400); RED BLOOD COUNT 5.04 M/uL (3.80-5.40); RED CELL DISTRIBUTION WIDTH 14.6 % (11.5-14.5); WHITE BLOOD COUNT W/O DIFF 11.5 K/uL (4.2-12.2)
[2018-11-17 17:50] LABS: URINE APPEARANCE CLEAR; URINE BILIRUBIN NEGATIVE (NEGATIVE); URINE BLOOD NEGATIVE (NEGATIVE); URINE COLOR YELLOW; URINE GLUCOSE (UA) NEGATIVE (NEGATIVE); URINE KETONE NEGATIVE (NEGATIVE); URINE NITRITE NEGATIVE (NEGATIVE); URINE PROTEIN NEGATIVE (NEGATIVE); URINE UROBILINOGEN 0.2 E.U./dL (0.20 - 1.00)
[2018-11-17 17:56] LABS: BLOOD UREA NITROGEN 16 mg/dL (8-23); CREATININE 0.6 mg/dL (0.5-0.9); EST GLOMERULAR FILTRATION RATE > 60 mL/min
[2018-11-17 17:57] LABS: TOTAL PROTEIN 8.4 g/dL (6.6-8.7); URINE LEUKOCYTE ESTERASE TRACE (NEGATIVE); URINE RBC 0 - 3 (NONE SEEN)
[2018-11-17 17:58] LABS: URINE BACTERIA FEW
[2018-11-17 17:59] LABS: GLUCOSE,RANDOM 112 mg/dL (74-109)
[2018-11-17 18:01] LABS: ALBUMIN 4.6 g/dL (4.0-5.0); ALT/SGPT 12 U/L (<33); AST/SGOT 22 U/L (10.0-35.0)
[2018-11-17 18:02] LABS: ALKALINE PHOSPHATASE 120 U/L (35-104); BILIRUBIN,DIRECT < 0.2 mg/dL (0-0.3); LIPASE 43 U/L (13-60)
[2018-11-17] MEDS ORDERED: HYDROMORPHONE HCL 2 MG/ML VIAL IVP ONE (18:02)
[2018-11-17] MEDS ORDERED: ONDANSETRON HCL IV 4 MG/2 ML VIAL IVP ONE (18:02)
[2018-11-17] MEDS ORDERED: DICYCLOMINE HCL 10 MG CAPSULE PO ONE (19:55)
[2018-11-17] MEDS ORDERED: METRONIDAZOLE 250 MG TABLET PO ONE (19:55)
[2018-11-17] MEDS ORDERED: CIPROFLOXACIN HCL 500 MG TABLET PO ONE (19:55)
--- NOTE | 2018-11-17 23:19 | Emergency Department Record ---
History of Present Illness - General Chief Complaint: Abdominal Pain Stated Complaint: LLQ PAIN Time Seen by Provider: 11/17/18 17:22 Source: Patient Mode of Arrival: Ambulatory - History of Present Illness Onset/Timin -: Days(s) Location: LLQ Radiation: Back Severity: Moderate Severity scale (1-10): 7 Quality: Other Consistency: Constant Improves With: Nothing Worsens With: Nothing Associated Symptoms: Denies other symptoms - Related Data Patient : No Previous Rx's Medication Instructions Recorded Aspirin Enteric-Coated [Ecotrin 81 mg PO DAILY tabec 02/13/17 (EC)] Ciprofloxacin HCl [Cipro] 500 mg PO Q12HR #20 tablet 11/17/18 Dicyclomine HCl [Bentyl] 10 mg PO Q8H #30 cap 11/17/18 Metronidazole [Flagyl] 500 mg PO TID #30 tablet 11/17/18 Polyethylene Glycol 3350 [Miralax] 17 gm PO DAILY #1 bottle 11/17/18 Allergies Allergy/AdvReac Type Severity Reaction Status Date / Time Penicillins Allergy HIVES Verified 11/17/18 17:04 Travel Screening - Travel/Exposure Within Last 30 Days Have you traveled within the last 30 days?: No - Travel/Exposure Within Last Year Have you traveled outside the [place] in the last year?: No - Additonal Travel Details Have you been exposed to anyone with a communicable illness?: No - Travel Symptoms Symptom Screening: None Review of Systems Constitutional: Reports: As per HPI. Denies: Chills, Fever, Malaise, Night sweats, Weakness, Weight change Eyes: Reports: As per HPI. Denies: Eye discharge, Eye pain, Photophobia, Vision change ENT: Reports: As per HPI. Denies: Congestion, Dental pain, Ear pain, Epistaxis , Hearing loss, Throat pain Respiratory: Reports: As per HPI. Denies: Cough, Dyspnea, Hemoptysis, Stridor, Wheezes Cardiovascular: Reports: As per HPI. Denies: Arrhythmia, Chest pain, Dyspnea on exertion, Edema, Murmurs, Orthopnea, Palpitations, Paroxysmal nocturnal dyspnea, Rheumatic Fever, Syncope Endocrine: Reports: As per HPI. Denies: Fatigue, Heat or cold intolerance, Polydipsia, Polyuria Gastrointestinal: Reports: As per HPI, Abdominal pain. Denies: Constipation, Diarrhea, Hematemesis, Hematochezia, Melena, Nausea, Vomiting Genitourinary: Reports: As per HPI. Denies: Abnormal menses, Discharge, Dyspareunia, Dysuria, Frequency, Hematuria, Incontinence, Retention, Urgency Musculoskeletal: Reports: As per HPI. Denies: Arthralgia, Back pain, Gout, Joint swelling, Myalgia, Neck pain Skin: Reports: As per HPI. Denies: Bruising, Change in color, Change in hair/ nails, Lesions, Pruritus, Rash Neurological: Reports: As per HPI. Denies: Abnormal gait, Confusion, Headache, Numbness, Paresthesias, Seizure, Tingling, Tremors, Vertigo, Weakness Psychiatric: Reports: As per HPI. Denies: Anxiety, Auditory hallucinations, Depression, Homicidal thoughts, Suicidal thoughts, Visual hallucinations Hematological/Lymphatic: Reports: As per HPI. Denies: Anemia, Blood Clots, Easy bleeding, Easy bruising, Swollen glands Past Medical History - SOCIAL HISTORY Smoking Status: Former smoker Alcohol Use: None Drug Use: None - RESPIRATORY Hx Respiratory Disorders: No - CARDIOVASCULAR Hx Cardio Disorders: Yes Comment:: Heart murmur, BNP of 1200 per Pt. - NEURO Hx Neuro Disorders: No - GI Hx GI Disorders: No - Hx Genitourinary Disorders: No - ENDOCRINE Hx Endocrine Disorders: No - MUSCULOSKELETAL Hx Musculoskeletal Disorders: Yes - PSYCH Hx Psych Problems: No - HEMATOLOGY/ONCOLOGY Hx Hematology/Oncology Disorders: No Family Medical History Any Significant Family History?: Yes Hx Cancer: Father Course Vital Signs 11/17/18 11/17/18 17:11 19:36 Temperature 97.8 F Pulse Rate 60 Pulse Rate [ 50 L Pulse Ox Probe] Respiratory 18 16 Rate Blood Pressure 175/76 Blood Pressure 140/72 [Left Arm] Pulse Ox 99 99 Medical Decision Making - Lab Data Result diagrams: 11/17/18 17:18 11/17/18 17:18 Lab Results 11/17/18 11/17/18 11/17/18 Range/Units 17:18 17:18 17:18 WBC 11.5 (4.2-12.2) K/uL RBC 5.04 (3.80-5.40) M/uL Hgb 14.7 (11.6-16.0) gm/dl Hct 46.4 (35.0-47.0) % MCV 92.1 (81-97) fl MCH 29.2 (27-33) pg MCHC 31.7 L (32-36) g/dl RDW 14.6 H (11.5-14.5) % Plt Count 350 (130-400) K/uL MPV 10.1 (7.4-10.4) fl Gran % 67.3 (47-80) % Lymphocytes % 25.1 (16-45) % Monocytes % 4.8 (0-9) % Eosinophils % 2.5 (0-6) % Basophils % 0.3 (0-6) % Sodium 143 (136-145) mmol/L Potassium 3.7 (3.4-4.5) mmol/L Chloride 101 (98-107) mmol/L Carbon Dioxide 27.0 (22-29) mmol/L Anion Gap 15.0 (7-16) BUN 16 (8-23) mg/dL Creatinine 0.6 (0.5-0.9) mg/dL Estimated GFR > 60 mL/min Random Glucose 112 H (74-109) mg/dL Calcium 9.3 (8.8-10.2) mg/dL Total Bilirubin 0.30 (0.2-1.0) mg/dL Direct Bilirubin < 0.2 (0-0.3) mg/dL AST 22 (10.0-35.0) U/L ALT 12 (<33) U/L Alkaline Phosphatase 120 H (35-104) U/L Total Protein 8.4 (6.6-8.7) g/dL Albumin 4.6 (4.0-5.0) g/dL Lipase 43 (13-60) U/L Urine Color Yellow Urine Appearance Clear Urine pH 6.0 (5.0-8.0) Ur Specific [place] 1.020 (1.002-1.030) Urine Protein Negative (NEGATIVE) Urine Glucose (UA) Negative (NEGATIVE) Urine Ketones Negative (NEGATIVE) Urine Blood Negative (NEGATIVE) Urine Nitrite Negative (NEGATIVE) Urine Bilirubin Negative (NEGATIVE) Urine Urobilinogen 0.2 (0.20 - 1.00) E.U./dL Ur Leukocyte Esterase Trace H (NEGATIVE) Urine RBC 0 - 3 (NONE SEEN) Urine WBC 3 - 5 (0-2/hpf) U Non-Squamous Epi Cells 3 - 6 /hpf Urine Bacteria Few Disposition Clinical Impression: Diverticulitis Abdominal pain Qualifiers: Abdominal location: left lower quadrant Qualified Code(s): R10.32 - Left lower quadrant pain Disposition: Home, Self-Care Condition: (1) Good Instructions: Diverticulitis (ED) Additional Instructions: follow up with family Dr in 2-5 days low fiber diet Prescriptions: Ciprofloxacin HCl [Cipro] 500 mg PO Q12HR #20 tablet Dicyclomine HCl [Bentyl] 10 mg PO Q8H #30 cap Metronidazole [Flagyl] 500 mg PO TID #30 tablet Polyethylene Glycol 3350 [Miralax] 17 gm PO DAILY #1 bottle Forms: Patient Portal Access Quality - Quality Measures Quality Measures: N/A - Blood Pressure Screening Does Patient Have Any of the Following: No Blood Pressure Classification: Hypertensive Reading Systolic Measurement: 175 Diastolic Measurement: 76 Screening for High Blood Pressure: < First Hypertensive BP, F/U Documented > [ G8950] First Hypertensive Follow-up Interventions: Referral to alternative/primary care provider.
--- NOTE | 2018-11-18 14:25 | CT SCAN REPORT ---
EXAM: CT OF THE ABDOMEN AND PELVIS WITHOUT CONTRAST HISTORY: LEFT LOWER QUADRANT PAIN. TECHNIQUE: Noncontrast CT images were obtained from the lung bases to the symphysis pubis. FINDINGS: The lung bases demonstrate irregular consolidation in the right lower lobe similar in appearance to 04/23/12. There is emphysematous change bilaterally. 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 There are postoperative changes of cholecystectomy. The liver is unremarkable. There is no evidence of intrahepatic biliary dilatation. The spleen appears normal. The pancreas is not enlarged. Evaluation for pancreatic masses is challenging without intravenous contrast. There is fullness of the left adrenal gland, unchanged. No renal calculi are seen. There is no evidence of significant hydronephrosis. There is mild constipation. There is no evidence of free air. There is no definite bowel distention, but lack of contrast and intraperitoneal fat complicates evaluation of small bowel loops, particularly at the anastomosis anterior to the sacrum. There is no evidence of ascites. There is no free air. IMPRESSION: THE EXAMINATION IS LIMITED WITHOUT INTRAVENOUS CONTRAST. THERE IS EVIDENCE OF CONSTIPATION. THERE IS NO EVIDENCE OF URETERAL CALCULUS OR HYDRONEPHROSIS. NO DEFINITE INFLAMMATORY CHANGES ARE SEEN. J[facility]BER: [id number] [facility]
== END 2018-11-17 20:21 | disposition home or self-care (01) ==
LOC: ER 16:59
DX: K57.92 Diverticulitis of intestine, part unspecified, without perforation or abscess without bleeding (principal); K59.00 Constipation, unspecified; R10.32 Left lower quadrant pain; Z87.891 Personal history of nicotine dependence
CPT/HCPCS: 74176; 80048; 80076; 81001; 83690; 85025; 96361; 96374; 96375; 99284; J2405

== ENCOUNTER 2018-12-02 13:26 | Emergency (ER) | payer MEDICARE ==
[2018-12-02] MEDS ORDERED: ASPIRIN 81 MG CHEWABLE TABLET PO ONE (13:49)
[2018-12-02] MEDS ORDERED: DILTIAZEM 25MG/5ML VIAL IV ONE ×2 (13:56→13:57)
[2018-12-02 14:03] LABS: MEAN CELL VOLUME 89.4 fl (81-97); MEAN CORPUSCULAR HGB CONC 32.7 g/dl (32-36); MEAN PLATELET VOLUME 10.4 fl (7.4-10.4); PLATELET COUNT 406 K/uL (130-400); RED BLOOD COUNT 5.48 M/uL (3.80-5.40); RED CELL DISTRIBUTION WIDTH 14.7 % (11.5-14.5); WHITE BLOOD COUNT W/O DIFF 17.7 K/uL (4.2-12.2)
[2018-12-02 14:06] LABS: MEAN CORPUSCULAR HEMOGLOBIN 29.1 pg (27-33)
[2018-12-02 14:17] LABS: PLATELET ESTIMATE NORMAL (NORMAL)
[2018-12-02 14:18] LABS: BLOOD UREA NITROGEN 23 mg/dL (8-23); CREATININE 0.8 mg/dL (0.5-0.9); EST GLOMERULAR FILTRATION RATE > 60 mL/min
[2018-12-02 14:21] LABS: GLUCOSE,RANDOM 136 mg/dL (74-109)
[2018-12-02 14:24] LABS: CREATINE PHOSPHOKINASE 119 U/L (26-192)
[2018-12-02 14:25] LABS: CKMB 3.9 ng/mL (<3.77)
[2018-12-02] MEDS ORDERED: DILTIAZEM HCL 125 MG in 0.9 % SODIUM CHLORIDE 100ML 100 ML IV SCH (14:30)
[2018-12-02 14:36] LABS: THYROID STIMULATING HORMONE 6.04 uIU/mL (0.270-4.20)
--- NOTE | 2018-12-02 14:40 | Emergency Department Record ---
History of Present Illness - General Chief Complaint: Chest Pain Stated Complaint: CHEST PAIN Time Seen by Provider: 12/02/18 13:34 Source: Patient Mode of Arrival: Wheelchair Limitations: No limitations - History of Present Illness Initial Comments: pt has been having palpitations, sob, lightheadedness and diarrhea for 3 days. pt is currently under a lot of stress as she is being evicted. pts with in the last year. pts grandson accompanies her MD Complaint: Chest pain Onset/Timin -: Days(s) Pain Location: Left chest Severity scale (1-10): 7 Consistency: Getting worse Improves With: Rest Worsens With: Exertion Anginal Symptoms: Dyspnea Other Symptoms: Palpitations, Other Treatments Prior to Arrival: Aspirin - Related Data On Oral Contraceptives: No Home Medications Medication Instructions Recorded Confirmed Last Taken Aspirin 325 mg PO DAILY 12/02/18 12/02/18 12/02/18 Previous Rx's Medication Instructions Recorded Ciprofloxacin HCl [Cipro] 500 mg PO Q12HR #20 tablet 11/17/18 Dicyclomine HCl [Bentyl] 10 mg PO Q8H #30 cap 11/17/18 Metronidazole [Flagyl] 500 mg PO TID #30 tablet 11/17/18 Polyethylene Glycol 3350 [Miralax] 17 gm PO DAILY #1 bottle 11/17/18 Allergies Allergy/AdvReac Type Severity Reaction Status Date / Time Penicillins Allergy HIVES Verified 11/17/18 17:04 Travel Screening - Travel/Exposure Within Last 30 Days Have you traveled within the last 30 days?: No - Travel/Exposure Within Last Year Have you traveled outside the [place] in the last year?: No - Additonal Travel Details Have you been exposed to anyone with a communicable illness?: No - Travel Symptoms Symptom Screening: None Review of Systems Reviewed: No additional complaints except as noted below Constitutional: Reports: As per HPI. Denies: Chills, Fever, Malaise, Night sweats, Weakness, Weight change Eyes: Reports: As per HPI. Denies: Eye discharge, Eye pain, Photophobia, Vision change ENT: Reports: As per HPI. Denies: Congestion, Dental pain, Ear pain, Epistaxis , Hearing loss, Throat pain Respiratory: Reports: As per HPI. Denies: Cough, Dyspnea, Hemoptysis, Stridor, Wheezes Cardiovascular: Reports: As per HPI, Palpitations. Denies: Arrhythmia, Chest pain, Dyspnea on exertion, Edema, Murmurs, Orthopnea, Paroxysmal nocturnal dyspnea, Rheumatic Fever, Syncope Endocrine: Reports: As per HPI. Denies: Fatigue, Heat or cold intolerance, Polydipsia, Polyuria Gastrointestinal: Reports: As per HPI. Denies: Abdominal pain, Constipation, Diarrhea, Hematemesis, Hematochezia, Melena, Nausea, Vomiting Genitourinary: Reports: As per HPI. Denies: Abnormal menses, Discharge, Dyspareunia, Dysuria, Frequency, Hematuria, Incontinence, Retention, Urgency Musculoskeletal: Reports: As per HPI. Denies: Arthralgia, Back pain, Gout, Joint swelling, Myalgia, Neck pain Skin: Reports: As per HPI. Denies: Bruising, Change in color, Change in hair/ nails, Lesions, Pruritus, Rash Neurological: Reports: As per HPI. Denies: Abnormal gait, Confusion, Headache, Numbness, Paresthesias, Seizure, Tingling, Tremors, Vertigo, Weakness Psychiatric: Reports: As per HPI. Denies: Anxiety, Auditory hallucinations, Depression, Homicidal thoughts, Suicidal thoughts, Visual hallucinations Hematological/Lymphatic: Reports: As per HPI. Denies: Anemia, Blood Clots, Easy bleeding, Easy bruising, Swollen glands Past Medical History - SOCIAL HISTORY Smoking Status: Current some day smoker - RESPIRATORY Hx Respiratory Disorders: No - CARDIOVASCULAR Hx Cardio Disorders: Yes Hx Irregular Heartbeat: Yes (AFIB) Comment:: Heart murmur, BNP of 1200 per Pt. - NEURO Hx Neuro Disorders: No - GI Hx GI Disorders: Yes Hx Diverticulitis: Yes - Hx Genitourinary Disorders: No - ENDOCRINE Hx Endocrine Disorders: No - MUSCULOSKELETAL Hx Musculoskeletal Disorders: Yes - PSYCH Hx Psych Problems: Yes Hx Anxiety: Yes - HEMATOLOGY/ONCOLOGY Hx Hematology/Oncology Disorders: No Family Medical History Any Significant Family History?: Yes Hx Cancer: Father Physical Exam - General General Appearance: Alert, Oriented x3, Cooperative, Mild distress - Head Head exam: Normal inspection - Eye Eye exam: Normal appearance, PERRL, EOMI Pupils: Normal accommodation - ENT ENT exam: Normal exam, Mucous membranes moist, Normal external ear exam, Normal orophraynx Ear exam: Normal external inspection. negative: External canal tenderness Nasal Exam: Normal inspection. negative: Discharge, Sinus tenderness Mouth exam: Normal external inspection, Tongue normal Teeth exam: Normal inspection. negative: Dental caries Throat exam: Normal inspection. negative: Tonsillar erythema, Tonsillar exudate - Neck Neck exam: Normal inspection, Full ROM. negative: Tenderness - Respiratory Respiratory exam: Normal lung sounds bilaterally. negative: Respiratory distress - Cardiovascular Cardiovascular Exam: Normal rhythm, Normal heart sounds, Tachycardia - GI/Abdominal GI/Abdominal exam: Soft, Normal bowel sounds. negative: Tenderness - Rectal Rectal exam: Deferred - exam: Deferred - Extremities Extremities exam: Normal inspection, Full ROM, Normal capillary refill. negative: Tenderness - Back Back exam: Reports: Normal inspection, Full ROM. 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 ] Respiratory 30 H 28 H 24 Rate Blood Pressure 82/62 Blood Pressure 83/46 88/50 [Left Arm] Pulse Ox 99 93 L 95 12/02/18 14:05 Temperature Pulse Rate Pulse Rate [ 119 H Beauty Culturist ] Respiratory 24 Rate Blood Pressure Blood Pressure 93/86 [Left Arm] Pulse Ox 98 Medical Decision Making - Lab Data Result diagrams: 12/02/18 13:45 12/02/18 13:45 Lab Results 12/02/18 12/02/18 Range/Units 13:45 13:45 WBC 17.7 H (4.2-12.2) K/uL RBC 5.48 H (3.80-5.40) M/uL Hgb 16.0 (11.6-16.0) gm/dl Hct 49.0 H (35.0-47.0) % MCV 89.4 (81-97) fl MCH 29.1 (27-33) pg MCHC 32.7 (32-36) g/dl RDW 14.7 H (11.5-14.5) % Plt Count 406 H (130-400) K/uL MPV 10.4 (7.4-10.4) fl Neutrophils % 84.0 H (47-80) % Band Neutrophils % 2.0 (0-5) % Eosinophils % Not Reportable Basophils % Not Reportable Lymphocytes 11.0 L (16-45) % Monocytes 3.0 (0-9) % Platelet Estimate Normal (NORMAL) RBC Morphology Normal D-Dimer 0.83 H (0-0.59) mg/L FEU Disposition Disposition: Transfer Clinical Impression: Atrial fibrillation with RVR Disposition: Acute Care Hospital Transfer Transfer To: [facility] Reason For Transfer: needs cardiology Accepting Physician: dr way Time Discussed w/Accepting Physician: 17:29 Quality - Quality Measures Quality Measures: N/A - Blood Pressure Screening Does Patient Have Any of the Following: No Blood Pressure Classification: Normal BP Reading Systolic Measurement: 82 Diastolic Measurement: 62 Screening for High Blood Pressure: < Normal BP, F/U Not Required > [G8783]
[2018-12-02] MEDS ORDERED: HEPARIN SODIUM 1000 UNIT/1 ML 10ML VIAL IVP ONE (14:46)
[2018-12-02] MEDS ORDERED: HEPARIN SODIUM/D5W 25,000 UNITS/500 ML BAG IV SCH (15:00)
[2018-12-02 15:10] LABS: THYROXINE (T4) 8.2 ug/dL (4.5-11.7)
--- NOTE | 2018-12-03 14:11 | RADIOLOGY REPORT ---
EXAM: PORTABLE CHEST HISTORY: DIFFICULTY IN BREATHING. TECHNIQUE: A single AP view of the chest was performed. FINDINGS: The heart size is normal. The lungs are hyperinflated. There is bilateral upper lobe pleural/parenchymal scarring. The osseous structures are normal. IMPRESSION: HYPERINFLATED LUNGS. BIAPICAL PLEURAL/PARENCHYMAL SCARRING. NO CHANGE WHEN COMPARED TO THE PRIOR EXAMINATION. JOB NUMBER: [id number] MTDD
--- NOTE | 2018-12-03 14:46 | CT ANGIOGRAM REPORT ---
EXAM: CTA OF THE CHEST HISTORY: SHORTNESS OF BREATH, CHEST PAIN, ELEVATED WHITE BLOOD CELL COUNT. TECHNIQUE: CT angiogram of the chest was obtained. 75 ml of Omnipaque 350 intravenous contrast agent was utilized. Additional maximum intensity projection images were created on a separate workstation. Comparison: Chest radiograph 12/02/18 and 09/05/18. FINDINGS: No filling defects o suggest pulmonary embolism. The thoracic aorta is nonaneurysmal. Contrast bolus timing is not adequate to exclude dissection. No significant pericardial fluid collection is seen. There is pronounced reflux of intravenous contrast into the inferior vena cava and hepatic veins. Subcentimeter low attenuation right thyroid lobe nodule. Multiple borderline and mildly enlarged mediastinal lymph nodes, some of which are partially calcified. Reference lymph nodes include a precarinal 1.6 cm short axis lymph node and subcarinal lymph nodes measuring up to 1.7 cm short axis. No significant hilar or axillary lymphadenopathy is appreciated. Diffuse bilateral fibrotic changes in the lungs, with a subpleural and apical predominant distribution. Bronchiectasis and subpleural bolus/blebs noted most prominently in the right lung apex. Patchy ground glass opacities in the lingula, left upper lobe, and right middle lobe. No pneumothorax. No pleural effusion. Dilation of intrahepatic and extrahepatic biliary ducts is noted. Partially seen post surgical changes of the stomach likely benign left adrenal adenoma appears stable from prior CT. Limited visualization of the osseous structures on CTA protocol exam. No definite acute osseous findings. IMPRESSION: 1. NO EVIDENCE OF PULMONARY EMBOLISM. 2. EXTENSIVE BILATERAL UPPER LOBE PREDOMINANT FIBROTIC LUNG CHANGES, SCATTERED AREAS OF PATCHY GROUND GLASS OPACITY ARE NOTED BILATERALLY AND COULD REPRESENT A SUPERIMPOSED INFECTIOUS OR INFLAMMATORY PROCESS. 3. REFLUX OF INTRAVENOUS CONTRAST INTO THE INFERIOR VENA CAVA AND HEPATIC VEINS ; RECOMMEND CORRELATION FOR EVIDENCE OF IMPAIRED RIGHT HEART FUNCTION. 4. PARTIALLY VISUALIZED EXTRA AND INTRAHEPATIC BILIARY DUCTAL DILATATION; A SIMILAR APPEARANCE IS SEEN ON COMPARISON CT ABDOMEN AND PELVIS PERFORMED ON 11/17 AND COULD REPRESENT FUNCTIONAL CHANGE RELATED TO PRIOR CHOLECYSTECTOMY. RECOMMEND CORRELATION FOR EVIDENCE OF BILIARY OBSTRUCTION. 5. MILD NONSPECIFIC MEDIASTINAL LYMPHADENOPATHY. JOB NUMBER: [id number] [facility]
== END 2018-12-02 20:19 | disposition short-term general hospital (02) ==
LOC: ER 13:26
DX: I48.0 Paroxysmal atrial fibrillation (principal); R06.02 Shortness of breath; R42 Dizziness and giddiness; R19.7 Diarrhea, unspecified; F17.210 Nicotine dependence, cigarettes, uncomplicated
CPT/HCPCS: 99285 ×2; 96365; 96366; 96375; 96368; 82550; 82553; 80048; 84443; 84479; 84436; 84484; 85379; 85027; 83880; 71045; 71275; 93005; 93010; Q9967

== ENCOUNTER 2019-03-19 18:54 | Emergency (ER) | payer MEDICARE ==
[2019-03-19] MEDS ORDERED: Diph,Pert(Acell),Tet Vac 0.5 ML SYR IM ONE (19:05)
--- NOTE | 2019-03-19 19:13 | Emergency Department Record ---
History of Present Illness - General Chief Complaint: Laceration(s) Stated Complaint: LACERATION ON FINGER OF LT HAND Time Seen by Provider: 03/19/19 19:05 Source: Patient Mode of Arrival: Ambulatory Limitations: No limitations - History of Present Illness Initial Commments: 78 yo female presents with a laceration flap to the web space of the left thumb. She injured it cutting food with a steak knife. She is on Eliquis. The injury is a very superficial flap. No loss of ROM. The bleeding was slow to stop so she came in to the ED for evaluation. -: Hour(s) (1.5) Extremity Location: Left: Hand Place: Home Context: Accidental, Sharp object use Associated Symptoms: None Treatments Prior to Arrival: Bandage - [place] Coma Scale Eye Response: (4) Open spontaneously Motor Response: (6) Obeys commands Verbal Response: (5) Oriented [place] Total: 15 - Related Data Hx Tetanus Toxoid Vaccination: Yes Year of Tetanus Vaccination: 2012 Previous Rx's Medication Instructions Recorded Dicyclomine HCl [Bentyl] 10 mg PO Q8H #30 cap 11/17/18 Polyethylene Glycol 3350 [Miralax] 17 gm PO DAILY #1 bottle 11/17/18 Allergies Allergy/AdvReac Type Severity Reaction Status Date / Time Penicillins Allergy HIVES Verified 11/17/18 17:04 Travel Screening - Travel/Exposure Within Last 30 Days Have you traveled within the last 30 days?: No - Travel/Exposure Within Last Year Have you traveled outside the [place] in the last year?: No - Additonal Travel Details Have you been exposed to anyone with a communicable illness?: No - Travel Symptoms Symptom Screening: None Review of Systems Constitutional: Denies: Chills, Fever Eyes: Denies: Vision change ENT: Denies: Congestion, Throat pain Respiratory: Denies: Cough Cardiovascular: Denies: Chest pain, Syncope Endocrine: Denies: Fatigue Gastrointestinal: Denies: Abdominal pain, Diarrhea, Nausea, Vomiting Musculoskeletal: Denies: Arthralgia, Joint swelling, Myalgia Skin: Reports: Other. Denies: Bruising, Change in color, Rash Neurological: Denies: Numbness, Tingling Psychiatric: Denies: Anxiety Hematological/Lymphatic: Denies: Easy bleeding, Easy bruising Past Medical History - SOCIAL HISTORY Smoking Status: Current some day smoker Alcohol Use: None Drug Use: None - RESPIRATORY Hx Respiratory Disorders: No - CARDIOVASCULAR Hx Cardio Disorders: Yes Hx Irregular Heartbeat: Yes (AFIB) Comment:: Heart murmur, BNP of 1200 per Pt. - NEURO Hx Neuro Disorders: No - GI Hx GI Disorders: Yes Hx Diverticulitis: Yes - Hx Genitourinary Disorders: No - ENDOCRINE Hx Endocrine Disorders: No - MUSCULOSKELETAL Hx Musculoskeletal Disorders: Yes - PSYCH Hx Psych Problems: Yes Hx Anxiety: Yes - HEMATOLOGY/ONCOLOGY Hx Hematology/Oncology Disorders: No Family Medical History Any Significant Family History?: No Hx Cancer: Father Physical Exam - General General Appearance: Alert, Oriented x3, Cooperative, No acute distress Limitations: No limitations - Head Head exam: Atraumatic, Normal inspection - Eye Eye exam: Normal appearance. negative: Conjunctival injection - ENT ENT exam: Normal exam Ear exam: Normal external inspection Nasal Exam: Normal inspection Mouth exam: Normal external inspection - Neck Neck exam: Normal inspection - Cardiovascular Cardiovascular Exam: Regular rate, Normal rhythm, Normal heart sounds Peripheral Pulses: 2+: Radial (L) - Extremities Extremities exam: Full ROM, Normal capillary refill. negative: Normal inspection, Joint swelling, Tenderness Image of Hand: 1 - superficial flap laceration, full ROM, no numbness or tingling - Neurological Neurological exam: Alert, Oriented X3. negative: Motor sensory deficit - Psychiatric Psychiatric exam: Normal affect, Normal mood - Skin Type of lesion: Laceration Course Vital Signs 03/19/19 18:59 Temperature 97.6 F Pulse Rate 80 Respiratory 18 Rate Blood Pressure 164/110 Pulse Ox 94 L - Reevaluation(s) Reevaluation #1: The wound was cleaned and dried No bleeding The flap is very thin and superficial and not a good candidate for suture The area was steri-stripped in place for coverage. We discussed home care and reasons to return No bleeding after observation prior to DC 03/19/19 Disposition Disposition: Discharge Clinical Impression: Minor skin laceration Disposition: Home, Self-Care Condition: (1) Good Instructions: Laceration (ED) Additional Instructions: Keep the area dry and clean for the next 5 days Return if you have bleeding or difficulty with healing of the laceration Forms: Patient Portal Access Time of Disposition: 19:09 Quality - Quality Measures Quality Measures: N/A - Blood Pressure Screening Does Patient Have Any of the Following: No Blood Pressure Classification: Hypertensive Reading Systolic Measurement: 164 Diastolic Measurement: 110 Screening for High Blood Pressure: < Pre-Hypertensive BP, F/U Documented > [ G8950] Pre-Hypertensive Follow-up Interventions: Referral to alternative/primary care provider.
== END 2019-03-19 19:38 | disposition home or self-care (01) ==
LOC: ER 18:54
DX: S61.412A Laceration without foreign body of left hand, initial encounter (principal); W26.0XXA Contact with knife, initial encounter; Y93.G1 Activity, food preparation and clean up; Y92.009 Unspecified place in unspecified non-institutional (private) residence as the place of occurrence of the external cause; F17.210 Nicotine dependence, cigarettes, uncomplicated; I48.91 Unspecified atrial fibrillation
CPT/HCPCS: 90715; 96372; 99282

== ENCOUNTER 2019-11-07 20:08 | Emergency (ER) | payer MEDICARE ==
[2019-11-07] MEDS ORDERED: 0.9 % SODIUM CHLORIDE 1000ML 1,000 ML IV SCH (20:30)
[2019-11-07] MEDS: ONDANSETRON HCL IV 4 MG/2 ML VIAL IVP ONE (21:30)
[2019-11-07 21:31] LABS: ABSOLUTE NEUTROPHIL COUNT 6.09; BASO % 0.4 % (0-6); EOS % 1.8 % (0-6); GRAN % 67.5 % (47-80); HEMATOCRIT 38.7 % (35.0-47.0); LYMPH % 24.8 % (16-45); MEAN CELL VOLUME 91.7 fl (81-97); MEAN CORPUSCULAR HEMOGLOBIN 28.4 pg (27-33); MEAN PLATELET VOLUME 9.4 fl (7.4-10.4); MONO % 5.5 % (0-9); PLATELET COUNT 391 K/uL (130-400); RED BLOOD COUNT 4.22 M/uL (3.80-5.40); RED CELL DISTRIBUTION WIDTH 14.5 % (11.5-14.5)
[2019-11-07] MEDS: MORPHINE SULFATE 5 MG/ML VIAL IVP ONE (21:31)
[2019-11-07 21:49] LABS: BLOOD UREA NITROGEN 22 mg/dL (8-23); CREATININE 0.4 mg/dL (0.5-0.9); EST GLOMERULAR FILTRATION RATE > 60 mL/min; LIPASE 16 U/L (13-60); TOTAL PROTEIN 6.5 g/dL (6.6-8.7)
[2019-11-07 21:51] LABS: GLUCOSE,RANDOM 107 mg/dL (74-109)
[2019-11-07 21:54] LABS: ALBUMIN 3.3 g/dL (4.0-5.0); ALKALINE PHOSPHATASE 99 U/L (35-104); ALT/SGPT 15 U/L (<33); AST/SGOT 20 U/L (10.0-35.0)
--- NOTE | 2019-11-07 22:14 | Emergency Department Record ---
History of Present Illness - General Chief Complaint: Abdominal Pain Stated Complaint: ABD PAIN Time Seen by Provider: 11/07/19 20:19 Source: Patient, EMS Mode of Arrival: EMS Limitations: No limitations - History of Present Illness Initial Comments: 79 yo female presents to ED for evaluation of lower abdominal pain diffusely. Patient reports that she was seen and evaluated at [facility] 2 weeks ago, diagnosed with diverticulitis and treated with antibiotics. Patient reports that her pain symptoms did improve but worsened early this morning. Patient denies fevers, chills, nausea, vomiting, or change in stools. Patient does report that she completed her antibiotic treatment. MD Complaint: Abdominal pain Onset/Timin -: Days(s) Location: LLQ, RLQ Radiation: None Migration to: No migration Severity: Moderate Quality: Cramping Consistency: Constant Improves With: Nothing Worsens With: Nothing Associated Symptoms: Denies other symptoms - Related Data Patient : No Home Medications Medication Instructions Recorded Confirmed Last Taken Apixaban [Eliquis] 1 tab PO BID 11/07/19 11/07/19 11/07/19 Carvedilol [Coreg] 3.125 mg PO DAILY 11/07/19 11/07/19 11/07/19 Furosemide [Lasix] 20 mg PO DAILY PRN 11/07/19 11/07/19 11/05/19 Potassium Chloride [Klor-Con] 1 tab PO DAILY PRN 11/07/19 11/07/19 11/05/19 Previous Rx's Medication Instructions Recorded Dicyclomine HCl [Bentyl] 10 mg PO Q8H #30 cap 11/17/18 Polyethylene Glycol 3350 [Miralax] 17 gm PO DAILY #1 bottle 11/17/18 Ciprofloxacin HCl [Cipro] 500 mg PO Q12HR #19 tablet 11/07/19 Metronidazole [Flagyl] 500 mg PO Q8H #29 tablet 11/07/19 Polyethylene Glycol 3350 [Miralax] 1 packet PO DAILY #15 packet 11/07/19 Allergies Allergy/AdvReac Type Severity Reaction Status Date / Time Penicillins Allergy HIVES Verified 11/17/18 17:04 Review of Systems Constitutional: Denies: Chills, Fever, Malaise, Night sweats Eyes: Denies: Eye discharge, Eye pain ENT: Denies: Congestion, Ear pain, Epistaxis Respiratory: Denies: Cough, Dyspnea Cardiovascular: Denies: Chest pain, Dyspnea on exertion Endocrine: Denies: Fatigue, Heat or cold intolerance Gastrointestinal: Reports: Abdominal pain. Denies: Nausea, Vomiting Genitourinary: Denies: Incontinence, Retention Musculoskeletal: Denies: Arthralgia, Back pain Skin: Denies: Bruising, Change in color Neurological: Denies: Abnormal gait, Confusion, Headache, Seizure Psychiatric: Denies: Anxiety Hematological/Lymphatic: Denies: Anemia, Blood Clots Past Medical History - SOCIAL HISTORY Smoking Status: Current some day smoker Drug Use: None - RESPIRATORY Hx Respiratory Disorders: No - CARDIOVASCULAR Hx Cardio Disorders: Yes Hx Irregular Heartbeat: Yes (AFIB) Comment:: Heart murmur, BNP of 1200 per Pt. - NEURO Hx Neuro Disorders: No - GI Hx GI Disorders: Yes Hx Diverticulitis: Yes - Hx Genitourinary Disorders: No - ENDOCRINE Hx Endocrine Disorders: No - MUSCULOSKELETAL Hx Musculoskeletal Disorders: Yes - PSYCH Hx Psych Problems: Yes Hx Anxiety: Yes - HEMATOLOGY/ONCOLOGY Hx Hematology/Oncology Disorders: No Family Medical History Hx Cancer: Father Physical Exam - General General Appearance: Alert, Oriented x3, Cooperative, Mild distress Limitations: No limitations - Head Head exam: Atraumatic, Normocephalic, Normal inspection Head exam detail: negative: Abrasion, Contusion, Holder's sign, General tenderness, Hematoma, Laceration - Eye Eye exam: Normal appearance. negative: Conjunctival injection, Periorbital swelling, Periorbital tenderness, Scleral icterus - ENT Ear exam: negative: Auricular hematoma, Auricular trauma Nasal Exam: negative: Active bleeding, Discharge, Dried blood, Foreign body Mouth exam: negative: Drooling, Laceration, Muffled voice, Tongue elevation - Neck Neck exam: Normal inspection. negative: Meningismus, Tenderness - Respiratory Respiratory exam: Normal lung sounds bilaterally. negative: Rales, Respiratory distress, Rhonchi, Stridor - Cardiovascular Cardiovascular Exam: Regular rate, Normal rhythm, Normal heart sounds - GI/Abdominal GI/Abdominal exam: Soft, Tenderness (TTP LLQ< RLQ, and suprapubic regions on examination, no rebound, no guarding symptoms are present on examination.). negative: Rebound, Rigid - Rectal Rectal exam: Deferred - exam: Deferred - Extremities Extremities exam: Normal inspection. negative: Pedal edema, Tenderness - Back Back exam: Denies: CVA tenderness (R), CVA tenderness (L) - Neurological Neurological exam: Alert, Normal gait, Oriented X3 - Psychiatric Psychiatric exam: Normal affect, Normal mood - Skin Skin exam: Normal color. negative: Abrasion Type of lesion: negative: abrasion Course Vital Signs 11/07/19 20:25 Temperature 97.5 F L Pulse Rate [ 63 Left] Respiratory 18 Rate Blood Pressure 144/58 [Left] Pulse Ox 99 - Reevaluation(s) Reevaluation #1: 11/07/19 22:14 Laboratory studies were reviewed and appear grossly unremarkable for an acute process. Patient was updated on results thus far, reports that her pain symptoms are much imporved. Patient is going for CT imaging at this time. Reevaluation #2: 11/07/19 23:09 CT Abdomen and Pelvis: Pre-sacral/florinda-rectal edema may be due to inflammatory/infectious colitis Colonic diverticulitis Unchanged biliary dilation Patient was updated on all results, will initiate treatment with Flagyl/Cipro form the ED with instructions for outpatient treatment. Patient was instructed to use Miralax as well to facilitate ease of stooling. Patient appears stable for discharge at this time. Medical Decision Making - Lab Data Result diagrams: 11/07/19 20:50 11/07/19 20:50 Lab Results 11/07/19 11/07/19 Range/Units 20:50 20:50 WBC 9.0 (4.2-12.2) K/uL RBC 4.22 (3.80-5.40) M/uL Hgb 12.0 (11.6-16.0) gm/dl Hct 38.7 (35.0-47.0) % MCV 91.7 (81-97) fl MCH 28.4 (27-33) pg MCHC 31.0 L (32-36) g/dl RDW 14.5 (11.5-14.5) % Plt Count 391 (130-400) K/uL MPV 9.4 (7.4-10.4) fl Gran % 67.5 (47-80) % Lymphocytes % 24.8 (16-45) % Monocytes % 5.5 (0-9) % Eosinophils % 1.8 (0-6) % Basophils % 0.4 (0-6) % Absolute Neutrophils 6.09 Sodium 143 (136-145) mmol/L Potassium 3.2 L (3.4-4.5) mmol/L Chloride 105 (98-107) mmol/L Carbon Dioxide 24.0 (22-29) mmol/L Anion Gap 14.0 (7-16) BUN 22 (8-23) mg/dL Creatinine 0.4 L (0.5-0.9) mg/dL Estimated GFR > 60 mL/min Random Glucose 107 (74-109) mg/dL Calcium 8.7 L (8.8-10.2) mg/dL Total Bilirubin 0.40 (0.2-1.0) mg/dL AST 20 (10.0-35.0) U/L ALT 15 (<33) U/L Alkaline Phosphatase 99 (35-104) U/L Total Protein 6.5 L (6.6-8.7) g/dL Albumin 3.3 L (4.0-5.0) g/dL Globulin 3.2 (1.4-4.8) gm/dL Albumin/Globulin Ratio 1.0 L (1.1-1.8) Lipase 16 (13-60) U/L Disposition Disposition: Discharge Clinical Impression: Colitis Disposition: Home, Self-Care Condition: (2) Stable Instructions: Colitis (ED) Additional Instructions: Return to ED if your symptoms worsen or if you have any concerns. Flagyl, Cipro, and Miralax as directed. Follow-up with your family doctor in 1-3 days as directed. Prescriptions: Ciprofloxacin HCl [Cipro] 500 mg PO Q12HR #19 tablet Metronidazole [Flagyl] 500 mg PO Q8H #29 tablet Polyethylene Glycol 3350 [Miralax] 1 packet PO DAILY #15 packet Forms: Patient Portal Access Time of Disposition: 23:11 Quality - Quality Measures Quality Measures: N/A - Blood Pressure Screening Does Patient Have Any of the Following: No Blood Pressure Classification: Normal BP Reading Systolic Measurement: 105 Diastolic Measurement: 61 Screening for High Blood Pressure: < Normal BP, F/U Not Required > [G8783]
--- NOTE | 2019-11-07 23:05 | CT SCAN REPORT ---
EXAMINATION: ABDOMEN/PELVIS W CONTRAST EXAM DATE:11/07/2019 10:44 PM TECHNIQUE: Spiral CT images were obtained from the lung bases to the ischial tuberosities with intrav enous contrast. Sagittal and coronal 2-D reformats were made from source images. See EMR for IV con trast type and dose. Oral contrast: Yes INDICATION: Lower abdominal pain COMPARISON: CT chest 12/02/2018, CT abdomen/pelvis 11/17/2018 FINDINGS: CT Abdomen: Liver: The liver is normal in size and morphology. No focal liver lesions. Bile ducts: Mild intrahepatic/extrahepatic biliary dilation is unchanged and likely related to kori cystectomy and age. Gallbladder: Surgically absent. Pancreas: No focal lesions or peripancreatic inflammation. No dilation of the main pancreatic duct . Spleen: Normal size. Adrenals: No mass or other abnormality. Kidneys and Ureters: Nephrograms are normal and symmetric. No urinary tract stones or hydronephrosi s. No focal renal lesions. 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 Colonic diverticulosis. There is presacral/perirectal edema, new f rom the previous exam. No bowel wall thickening or evidence of obstruction. The appendix is not visu alized. Vasculature: Unremarkable. No aneurysmal dilation of the abdominal aorta. Lymph Nodes: No lymphadenopathy. Abdominal Wall: Unremarkable. Peritoneal Cavity: No free intraperitoneal fluid or gas. Retroperitoneum: Unremarkable. Skeletal: Unremarkable. Lung bases: Reticular scarring at the lung bases. CT Pelvis (In addition to findings described above.): Bladder: The bladder is unremarkable. Lymph nodes: No lymphadenopathy. IMPRESSION: 1. Presacral and perirectal edema may be due to an infectious or inflammatory colitis. 2. Colonic diverticulosis. 3. Sequelae from cholecystectomy including unchanged biliary dilation. 4. Other findings as described above. Dictated by: Antione uBtler MD on 11/07/2019 10:46 PM. .
[2019-11-07] MEDS: METRONIDAZOLE 250 MG TABLET PO ONE (23:29)
[2019-11-07] MEDS: CIPROFLOXACIN HCL 500 MG TABLET PO ONE (23:29)
== END 2019-11-07 23:44 | disposition home or self-care (01) ==
LOC: ER 20:08
DX: K52.9 Noninfective gastroenteritis and colitis, unspecified (principal); F17.210 Nicotine dependence, cigarettes, uncomplicated; I48.91 Unspecified atrial fibrillation; M54.5 Low back pain
CPT/HCPCS: 99284 ×2; 96374; 96375; 83690; 85025; 80053; 74177; Q9967; J2405